=== PATIENT | female | born 1930 | race Caucasian/White ===

== ENCOUNTER 2016-06-08 20:01 | Inpatient (IN) | payer MEDICARE, OTHER ==
--- NOTE | ~2016-06-08 | DS ---
Discharge Summary [place] [id number] [facility] [place]. [address] NAME: CONSTANCE GILL : 30 STATUS : DIS IN PAT#: [id number] AGE: 86 ADM/REG DATE : 06/08/16 MR#: [id number] REPORT SERV DATE: 07/05/16 DICTATED BY: BRET VILLA DATE: 07/04/16 REPORT STATUS : Draft TRANSCRIBED BY: MODCarla DATE: 07/04/16 ADMISSION DATE: 06/08/2016 DISCHARGE DATE: 07/02/2016 DISCHARGE DISPOSITION: [facility]. DISCHARGE DIAGNOSES: 1. Hypoxic respiratory failure. 2. Recurrent aspiration. 3. Aspiration pneumonia. 4. Severe sepsis. 5. Severe Clostridium difficile colitis. 6. Severe malnutrition. 7. History of dementia. 8. History of chronic obstructive pulmonary disease. 9. History of anxiety disorder. 10.History of depression. HISTORY OF PRESENT ILLNESS: For detailed HPI, please make reference to Dr. Peewee Beach's dictation on 06/09/2016. In brief, this is an 86-year-old female, who presented to the hospital from [facility] in [place], [place] with complaints of severe diarrhea and generalized weakness. It is of note, the patient has history of recurrent ESBL urinary tract infection prior to presentation and has had extensive antibiotic treatments in the past. It was noted on presentation that patient's blood pressure was 108/44, saturating 95% on 2 L of oxygen, temperature was 95.8. Abdomen was soft and nontender. Stool study was done, was positive for C diff toxin. The patient's WBC was noted to be 41,200. The patient was admitted to the hospitalist service for further management. HOSPITAL COURSE: The patient had a prolonged hospital stay from 06/08/2016 to the time of discharge. For detailed hospital course, please make reference to interim discharge summary dictated by Dr. Freya Rutherford on 06/29/2016, summary by Dr. Bret Villa on 06/24/2016, and another interim discharge summary by Dr. Freya Rutherford on 06/16/2016. In brief, during this hospital stay, Infectious Disease was consulted, recommended to initiate p.o. vancomycin and IV Flagyl. The patient was also noted to have had a dirty urine. The patient was initially started on meropenem. However, under the guide of Infectious Disease, meropenem was discontinued. The patient was continued on p.o. vancomycin and IV Flagyl for severe C diff colitis. The patient's white blood cell during the course of the admission, trended up and peaked at 84,000. This was a marker at 84,000 which was a marker of poor prognosis in this patient. After extended course of treatment with IV Flagyl and p.o. vancomycin, the patient's white blood cell count trended down from 84,000 back to 41,000 and remained stable for a prolonged period of time. The patient's mental status continued to decline throughout the course of admission. The patient was unable to tolerate p.o. The patient was started on TPN for nutritional support. Hospital stay was complicated by recurrent aspiration due to altered mental status. An extensive discussion was had with the patient's son who is the power of compliance attorney as well as the patient's granddaughter. It was noted that the patient's code status was do not resuscitate. Also, the patient expressed wishes of not to be Discharge [address] [address] NAME: OCNSTANCE GILL : 30 STATUS : DIS IN PAT#: [id number] AGE: 86 ADM/REG DATE : 06/08/16 MR#: [id number] REPORT SERV DATE: 07/05/16 DICTATED BY: BRET VILLA DATE: 07/04/16 REPORT STATUS : Draft TRANSCRIBED BY: LINO DATE: 07/04/16 intubated or connected to any invasive life support machine or procedure. Based on this note, the patient was provided extensive supportive care. The patient's hospital stay was also complicated by aspiration pneumonia. ID recommended to start the patient on IV cefepime. The patient's white blood cell gradually trended down from 48,000 back to 11,000 and remained stable. However, the patient's mental status did not improve. The patient was still unable to tolerate p.o. Due to patient's worsening mental status, the patient was unable to protect her airway. She continued to have recurrent excessive secretion and aspiration. Given the overall poor prognosis in this patient, family expressed a wish for the patient to be made comfort care and transferred to hospice. The patient with the case management director and social secretary provided, the family with multiple options of hospice organization available in the hospital, the patient's family decided to go with [facility]. The patient was discharged from the Medicine Service and admitted under the hospice service. IOO/MODL Bret Villa MD / [id number] CC: MD Bolivar Valadez M.D.
--- NOTE | ~2016-06-08 | CN ---
Consultation Report [place] [id number] [facility] [place]. [address] NAME: LEANNA FELIZ : 30 STATUS : ADM IN [facility]#: [id number] AGE: 86 ADM/REG DATE : 06/08/16 MR#: [id number] REPORT SERV DATE: 06/30/16 DICTATED BY: LORETTA CAROLINA DATE: 06/30/16 REPORT STATUS : Draft TRANSCRIBED BY: MODL DATE: 06/30/16 CONSULT DATE OF CONSULTATION: 06/30/2016 REASON FOR CONSULTATION: Respiratory failure. Ms. Leanna Feliz is an unfortunate 86-year-old female with a significant past medical history of COPD, peripheral neuropathy, essential tremor, hyperlipidemia, hypertension, anxiety, and depression, recent suspected aspiration pneumonia on 05/25/2016, and a urinary tract infection on 05/31/2016, who presented to [facility] with worsening shortness of breath, weakness, lethargy, anorexia, and diarrhea. The patient was found to have C. diff positive and C. diff NAP1 strain, impressive leukemoid reaction with a white blood cell count greater than 80,000. The patient was treated with p.o. vancomycin and Flagyl. However the patient was incompletely able to tolerate the medication because of her aspiration issues. During her hospital course, this has been complicated by multiorgan dysfunction including respiratory failure, increased tachycardia with her heart rate now in the 130s and 140s, encephalopathy, and worsening malnutrition and hypoalbuminemia on TPN. I have been asked to discuss her code status and offer insight into her current condition. I am unable to have a conversation with the patient. I spoke with the patient's family members including her granddaughter. The patient's granddaughter states that she was alert and awake at least 3-to-4 days ago and then suddenly had an acute decompensation and several witnessed episodes of aspiration. She currently has a DNR and DNI status and is not interested in mechanical ventilation. REVIEW OF SYSTEMS: Could not be performed due to the patient's altered mental status. PAST MEDICAL HISTORY: 1. Anxiety. 2. Depression. 3. Dementia. 4. COPD. 5. Gait disorder. 6. Peripheral neuropathy. 7. Essential tremor. 8. Syncope. 9. ESBL E. coli. 10.Essential hypertension. 11.Hyperlipidemia. 12.Recent aspiration pneumonia. Consultation Report [place] [address] [id number] [place]. [address] NAME: LEANNA FELIZ : 30 STATUS : ADM IN [facility]#: [id number] AGE: 86 ADM/REG DATE : 06/08/16 MR#: [id number] REPORT SERV DATE: 06/30/16 DICTATED BY: LORETTA CAROLINA DATE: 06/30/16 REPORT STATUS : Draft TRANSCRIBED BY: LINO DATE: 06/30/16 PAST SURGICAL HISTORY: As above. SOCIAL HISTORY: The patient used to smoke, quit more than 10 years ago. There is no history of alcohol or illicit drug abuse. 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 FAMILY HISTORY: Noncontributory. ALLERGIES: NO KNOWN DRUG ALLERGIES. HOME MEDICATIONS: Reviewed and located in the paper chart. PHYSICAL EXAMINATION: VITAL SIGNS: Afebrile, T-current of 98.2, pulse of 124, down from a peak of 145, Vapotherm at 30 L at 97% with an FiO2 of 100%, blood pressure of 143/61; 5 foot 1 inch; 127 pounds, BMI of 24. GENERAL: Ill-appearing, in obvious respiratory failure and altered mental status. HEENT: Normocephalic and atraumatic. Pupils equal, round, and reactive to light and accommodation. Posterior oropharynx is clear but dry. NECK: No JVD. No LAD. Trachea midline. CARDIOVASCULAR: Tachycardic. No obvious murmurs, rubs, or clicks. LUNGS: Coarse bilateral breath sounds with rhonchi. No wheezes. ABDOMEN: Nontender. Nondistended. Soft. Positive bowel sounds. EXTREMITIES: No clubbing, cyanosis, or edema. SKIN: No new rashes, lesions, or ulcers. PSYCHIATRIC: I am unable to assess due to the patient's altered mental status. NEUROLOGIC: Moving all four extremities. LABORATORY DATA: White count of 11, hemoglobin of 8, hematocrit of 26, and platelet count of 291. Procalcitonin 0.11. Chemistries demonstrate a creatinine of 0.32, pH is 7.44, PaCO2 of 31, and PaO2 of 151. IMAGING: Chest x-ray on 06/30/2016, was reviewed and in addition to her admitting hospital x rays from her admission since her admission, mild interval retraction of the right upper extremity PICC line, developing left basilar consolidation, atelectasis, and right infrahilar atelectasis and diffuse interstitial disease consistent with bilateral aspiration pneumonia plus or minus overlying volume overload. ASSESSMENT AND PLAN: Ms. Leanna Feliz is an unfortunate 86-year-old female, whose birthday is today, with significant past medical history of prior tobacco abuse, who presented with worsening weakness and diarrhea, was found to have a NAP1 severe Clostridium difficile colitis with now multiorgan failure including altered mental status/encephalopathy, hypoxic respiratory failure, now on 100% Vapotherm, increasing heart rate, and persistent diarrhea with suboptimal therapy, given poor p.o. absorption of the patient's vancomycin. The Consultation Report [address] [place]. [address] NAME: LEANNA FELIZ : 30 STATUS : ADM IN PAT#: [id number] AGE: 86 ADM/REG DATE : 06/08/16 MR#: [id number] REPORT SERV DATE: 06/30/16 DICTATED BY: LORETTA CAROLINA DATE: 06/30/16 REPORT STATUS : Draft TRANSCRIBED BY: LINO DATE: 06/30/16 patient is now in obvious respiratory failure and could not protect her airway and could qualify for intubation. I did discuss her code status in great detail. I have reviewed imaging with the family and reviewed all of the patient's chest x-rays. The patient's family reiterated that she does not wish to be intubated or on life support and confirmed DNR DNI status. We did discuss in detail other options including hospice. The patient's family member is coming in from [place]. They will discuss with the family whether or not comfort care measures are appropriate. RECOMMENDATIONS: A summary of my recommendations are as follows: 1. Greater than 60 minutes spent at discussing and counseling the patient's family regarding the clinical prognosis with pulmonary hypoxic respiratory failure and hospice care. Thank you for allowing me to participate in Ms. Feliz' care. JASON/LINO Loretta Carolina M.D. / [id number] CC: MD Bolivar Valadez M.D.
--- NOTE | ~2016-06-08 | CN ---
Consultation Report [facility] [address] [place]. [address] NAME: CONSTANCE GILL : 30 STATUS : ADM IN [facility]#: [id number] AGE: 85 ADM/REG DATE : 06/08/16 MR#: [id number] REPORT SERV DATE: 06/11/16 DICTATED BY: HARSHA KOEHLER DATE: 06/10/16 REPORT STATUS : Draft TRANSCRIBED BY: MODL DATE: 06/10/16 DATE OF CONSULTATION: 06/10/2016 REASON FOR CONSULTATION: C difficile colitis. HISTORY OF PRESENT ILLNESS: This is an 85-year-old female with a past medical history notable for COPD, peripheral neuropathy, essential tremor, hyperlipidemia, hypertension, anxiety, and depression. She also has a history according to the record of recurrent UTIs, including an ESBL E coli in the past. She resides at a local detention. The patient was given a course of clindamycin starting on 05/25/2016 for suspected aspiration pneumonia in the setting of leukocytosis earlier that month of 17,000. I do not see a chest x-ray report. On 05/31/2016, the patient was started on Macrobid for 10 days for concerns about a UTI. However, she was brought to the emergency department on 06/08/2016 here at [facility] because of increasing weakness, lethargy, and anorexia and she also had developed diarrhea. Stool for C difficile was positive for the NAP-1 strain. She had a leukocytosis on admission of 41.2 thousand. Earlier in the day at the detention, it had been 32.6, which also prompted the facility to send her to the emergency department. The patient was placed on oral vancomycin and IV Flagyl along with IV meropenem. She continues to have diarrhea. Her white blood cell count today is up to 49,000 with a 22% bandemia. She says she does have abdominal pain, although it is not severe. Her blood cultures have returned negative. Urine culture is negative. Urinalysis did show moderate leukocyte esterase and 167 white blood cells. She does not have a chronic [place]. PAST MEDICAL HISTORY: As outlined above. In addition, she has had numerous surgeries, including hysterectomy, cholecystectomy, cataract surgery, right hip replacement. ALLERGIES: NONE. PRESENT MEDICATIONS: In addition to the antibiotics mentioned include Tylenol, Norvasc, Caltrate, vitamin D, Prozac, Flonase, subcutaneous heparin, hydrochlorothiazide, Singulair, Ditropan, Inderal, Desyrel, potassium chloride, and MiraLAX. SOCIAL HISTORY: She is , nondrinker. Lives at the detention as mentioned. FAMILY HISTORY: Noncontributory. REVIEW OF SYSTEMS: As outlined above. In addition, she complains of some right arm discomfort, but cannot really be more specific about it for me. Denies any cough or chest pain. PHYSICAL EXAMINATION: VITAL SIGNS: This is a 51 kg female. She has been afebrile since admission. Blood pressure now 125/58, it was as low as 91/36 on admission. Pulse 94. Respiratory rate 16, it was 26 on admission. HEAD AND NECK: The oral cavity is clear. Neck is supple. No adenopathy. Consultation Report [place] [id number] [facility] [place]. [address] NAME: CONSTANCE GILL : 30 STATUS : ADM IN [facility]#: [id number] AGE: 85 ADM/REG DATE : 06/08/16 MR#: [id number] REPORT SERV DATE: 06/11/16 DICTATED BY: HARSHA KOEHLER DATE: 06/10/16 REPORT STATUS : Draft TRANSCRIBED BY: LINO DATE: 06/10/16 LUNGS: Clear to auscultation anteriorly. CARDIAC: Regular rate and rhythm. Normal S1 and S2 without murmur, gallop, or rub. ABDOMEN: Shows hyperactive bowel sounds, mildly distended, soft. Mild diffuse tenderness. EXTREMITIES: The patient has a peripheral IV without phlebitis. No significant edema. SKIN: Without rash. LABORATORY STUDIES: White blood cell count as mentioned. Hemoglobin 11.3, platelets 349, creatinine 0.71, albumin 2.2. Liver function tests normal. Microbiology studies as mentioned. Chest x-ray on admission negative. IMPRESSION: Sepsis secondary to severe Clostridium difficile colitis. I do not think she has an active urinary tract infection at present. The admission urine culture is negative. She was on Macrobid and she does have some pyuria, but I think at this point, the risk of ongoing broad-spectrum antibiotic therapy outweigh any benefit given her Clostridium difficile. PLAN: 1. We will continue oral vancomycin and IV Flagyl for the C difficile. 2. Stop the meropenem. 3. Stop the MiraLAX. HH/MODL Harsha Koehler M.D. / [id number] CC: Albert Shabazz M.D.
--- NOTE | ~2016-06-08 | HP ---
History And Physical [place] [address] [place]. [address] NAME: CONSTANCE FELIZ : 30 STATUS : ADM IN [facility]#: [id number] AGE: 85 ADM/REG DATE : 06/08/16 MR#: [id number] REPORT SERV DATE: 06/09/16 DICTATED BY: PEEWEE MADDEN DATE: 06/08/16 REPORT STATUS : Draft TRANSCRIBED BY: MODL DATE: 06/08/16 DATE OF ADMISSION: 06/08/2016 CHIEF COMPLAINT: Generalized weakness and diarrhea. HISTORY OF PRESENT ILLNESS: This is an 85-year-old female, who is a resident at [facility] in [place], [place], who has a history of recurrent ESBL urinary tract infections, who started feeling sick about a week or so ago. During this time, she had some lower abdominal pain and diarrhea. The [facility] facility tried some medications, but when she did not get any better they decided to send her to the emergency room to be evaluated. In the emergency room, initial workup revealed, she did have a urinary tract infection and also tested positive for Clostridium difficile colitis. She had sepsis and Hospitalist Service is asked to admit her for further evaluation and treatment. At the time of my evaluation, she denied any chest pain, palpitations, or orthopnea. She had no cough, hemoptysis, night sweats, or weight loss. She has not had any recent falls or loss of consciousness. She has not had any fevers or chills according to her, but did have some nausea. She denied any hematemesis, hematochezia, or hematuria. No other history of recent travel or exposures other than those mentioned above. 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 She also has history of ESBL E. coli in the past along with essential hypertension and hypercholesterolemia. SOCIAL HISTORY: She used to smoke, but has not smoked in more than 10 years. She denied alcohol use or recreational drug use. 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 FAMILY HISTORY: Noncontributory. MEDICATIONS: Her medications at home were reviewed by me in the chart today and reordered by me. REVIEW OF SYSTEMS: As in history of present illness. All other systems were reviewed in detail and are quite unremarkable. PHYSICAL EXAMINATION: GENERAL: This is a pleasant 85-year-old, not in any acute distress. HEENT: Her head is atraumatic and normocephalic. She is alert, awake, oriented to time, place, and person. Her pupils are equal, reacting to light and accommodating. External ocular muscles are intact. Membranes are moist and pink. Sclerae are nonicteric. NECK: Supple with no jugular venous distention, lymphadenopathy, or thyromegaly. History And Physical [address] [address] NAME: CONSTANCE FELIZ : 30 STATUS : ADM IN [facility]#: [id number] AGE: 85 ADM/REG DATE : 06/08/16 MR#: [id number] REPORT SERV DATE: 06/09/16 DICTATED BY: PEEWEE MADDEN DATE: 06/08/16 REPORT STATUS : Draft TRANSCRIBED BY: LINO DATE: 06/08/16 LUNGS: Clear to auscultation with no wheezes, rubs, or crackles. HEART: Heart sounds were regular with no murmurs, rubs, or gallops. ABDOMEN: Soft and nontender. Bowel sounds are present. EXTREMITIES: No cyanosis, clubbing, or edema. NEUROLOGIC: Grossly intact. No focal sensory or motor deficits. Higher functions appeared intact. Gait was not examined. VITAL SIGNS: Her vital signs today showed a temperature of 98.2, pulse 75, respirations 26 a minute, blood pressure was 108/44, and oxygen saturations were 95%, breathing 2 L of oxygen via nasal cannula. LABORATORY DATA: Reviewed on the [employer] system showed a sodium of 139, potassium 3.5, chloride 105, CO2 of 24, BUN was 30 with a creatinine of 0.75, and blood glucose was 111. Her calcium was 8. Magnesium was not checked. CBC showed a white blood cell count of 41,200. Hemoglobin, hematocrit, and platelet count were within normal limits. Her prothrombin time was 14.6 with an INR of 1.2. Urinalysis showed moderate leukocyte esterase, nitrite was negative. There were 167 wbc's and rare bacteria. She also tested positive for Clostridium difficile in her stool. Films of the chest x-ray were reviewed by me on the PACS today and interpreted by me. Per my interpretation, there is normal bony architecture with no cardiomegaly. Lung frances were emphysematous, but without any lobar consolidations or effusions. IMPRESSION: 1. Generalized weakness. 2. Urinary tract infection. 3. Sepsis. 4. Clostridium difficile colitis and diarrhea. 5. Essential hypertension. 6. Hypercholesterolemia. 7. Dementia. 8. Anxiety and depression. 9. Chronic obstructive pulmonary disease. 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 11.Essential tremor. 12.Peripheral neuropathy. PLAN: We will admit Mrs. Feliz to the Hospitalist Service with telemetry for close monitoring. After cultures are drawn we will start her on empiric IV antibiotics. We will start her on meropenem for ESBL E. coli and also intravenous Flagyl. We will go ahead and consult Infectious Disease Service to evaluate her and offer recommendation as well. We will start her on IV fluids for volume resuscitation. Follow serial chemistry, electrolytes, and CBC in the morning. We will also check her lactate and procalcitonin levels. Bronchodilators and oxygen will be provided at this time. We will continue all History And Physical [address] [address] NAME: CONSTANCE FELIZ : 30 STATUS : ADM IN [facility]#: [id number] AGE: 85 ADM/REG DATE : 06/08/16 MR#: [id number] REPORT SERV DATE: 06/09/16 DICTATED BY: PEEWEE MADDEN DATE: 06/08/16 REPORT STATUS : Draft TRANSCRIBED BY: LINO DATE: 06/08/16 other medications and treatments. She will be on unfractionated heparin for DVT prophylaxis while here. I have discussed the above plans with the patient. Her questions were answered. She is agreeable to the above recommendations. Hospitalist Service will be following her during her stay here. /LINO Peewee Madden M.D. / [id number] CC: Albert Patel M.D.
--- NOTE | ~2016-06-08 | IDS ---
Interim Discharge Summary [facility] [address] [place]. [address] NAME: CONSTANCE GILL : 30 STATUS : ADM IN [facility]#: [id number] AGE: 85 ADM/REG DATE : 06/08/16 MR#: [id number] REPORT SERV DATE: 06/24/16 DICTATED BY: BRET VILLA DATE: 06/22/16 REPORT STATUS : Draft TRANSCRIBED BY: MODCarla DATE: 06/22/16 ADMISSION DATE: 06/08/2016 DISCHARGE DATE: DISCHARGE DATE: Pending. CURRENT DIAGNOSES: 1. Severe sepsis secondary to acute severe Clostridium difficile with leukemoid reaction. The patient is currently receiving IV Flagyl and p.o. vancomycin. White cell count has currently trended down from 84,000 to 30,000. 2. Severe malnutrition secondary to malabsorption due to Clostridium difficile colitis. The patient is currently on TPN and tolerating it without any complication. 3. Leukemoid reaction. The patient's creatinine was as high as 84,000; currently trended down to 54,000 as of today. The patient's white blood cell is now 30,000. The patient is currently improving. 4. Hyponatremia, resolved. 5. Possible urinary tract infection. The patient has a history of Escherichia coli. The patient's urinalysis was positive for leukocyte esterase; however, her urine culture was negative. ID recommended not to continue any antibiotic treatment for possible urinary tract infection. 6. Also had heme-positive stool. The patient was noted to have a heme-positive stool and some streaks of blood mixed with stool and mucus. There was initial concern for possible GI bleed. The patient was started on IV Protonix during the course of this admission. The patient was switched from the IV Protonix drip to IV PPI. The patient's hemoglobin has remained stable. Given the patient's poor prognosis and overall debilitating condition from C. diff colitis. Gastroenterology was not consulted. The patient's H and H remained stable. 7. Oral candidiasis, on oral nystatin t.i.d. p.r.n. 8. Normocytic anemia. Hemoglobin stable at 10.8. 9. Pedal edema likely due to dependent position. The patient is currently off IV fluid, at this time and is on TPN. Other chronic conditions being monitored include: 1. Dementia. 2. DNR status. 3. COPD. 4. Depression. 5. Anxiety disorder. 6. Peripheral neuropathy. SOCIAL ISSUES: The patient's [id number] remained the only close relative who has been visiting the patient throughout the course of this admission. The patient's son currently lives [facility], in [facility]. The patient's son has a power of state attorney, if needed can be contacted over the phone. The patient's phone number can be obtained from the brother-in law who is usually at the bedside of this patient during this hospitalization. Interim Discharge Summary [address] [address] NAME: CONSTANCE GILL : 30 STATUS : ADM IN [facility]#: [id number] AGE: 85 ADM/REG DATE : 06/08/16 MR#: [id number] REPORT SERV DATE: 06/24/16 DICTATED BY: BRET VILLA DATE: 06/22/16 REPORT STATUS : Draft TRANSCRIBED BY: LINO DATE: 06/22/16 CURRENT CONDITION: Critical. IOO/MODL Bret Villa MD / [id number] CC: MD Jeane Valadez M.D.
--- NOTE | ~2016-06-08 | IDS ---
Interim Discharge Summary [facility] [address] [place]. [address] NAME: CONSTANCE GILL : 30 STATUS : ADM IN [facility]#: [id number] AGE: 85 ADM/REG DATE : 06/08/16 MR#: [id number] REPORT SERV DATE: 06/16/16 DICTATED BY: HILL MENDOSA DATE: 06/15/16 REPORT STATUS : Draft TRANSCRIBED BY: MODCarla DATE: 06/15/16 ADMISSION DATE: 06/08/2016 DISCHARGE DATE: DIAGNOSES: Diagnoses so far include the followin. Sepsis from acute and severe Clostridium difficile colitis - this is resolving slowly with IV Flagyl and p.o. vancomycin. The patient's diarrhea has stopped as of now. However, patient's nausea and extremely poor appetite persist. 2. Severe malnutrition from Clostridium difficile colitis - the patient is on TPN temporarily right now. Once her appetite picks up, the TPN can be discontinued. 3. Severe leukocytosis that was as high as 84,000 at one point. Now, it has started coming down and today her WBC count is 54,000. ID has been following and surprisingly the leukocytosis has been extremely acute and severe only from the clostridium difficile colitis as multiple multiple blood cultures have come back negative for any bacterial growth in this patient. ID at this time does not seem to think that this is fungal in origin. 4. The patient, however, in the beginning upon admission had a urinary tract infection with extended-spectrum beta-lactamase Escherichia coli for which she had received treatment with IV meropenem. However, once her urine culture came back negative after being treated for a few days with IV Merrem, Infectious Disease promptly discontinued IV meropenem which I agree. Now, the patient continues to be on IV Flagyl and p.o. vancomycin for the treatment of the C diff itself. As mentioned, the patient's diarrhea has resolved, but the patient continues to have severe leukocytosis and also continues to be on TPN. However, her leukocytosis is also on the downside and WBC count has actually improved today. 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 The patient actually is and is a resident of [facility]. Her next of kin is her significant other who promptly sees her every day and also helps make decisions on her healthcare right now. The patient does not appear to be septic at all surprisingly even though she appears really weak at this time. This patient will be followed by my colleague on 06/16/2016. Consultants on this case include Infectious Disease specialist and she is being followed by Dr. Justyn Koehler currently. JASIEL/LINO Hill Mendosa M.D. / [id number] CC: Hill Mendosa M.D. Interim Discharge Summary [address] [address] NAME: CONSTANCE GILL : 30 STATUS : ADM IN [facility]#: [id number] AGE: 85 ADM/REG DATE : 06/08/16 MR#: [id number] REPORT SERV DATE: 06/16/16 DICTATED BY: HILL MENDOSA DATE: 06/15/16 REPORT STATUS : Draft TRANSCRIBED BY: LINO DATE: 06/15/16 Jeane Jaramillo M.D.
--- NOTE | ~2016-06-08 | IDS ---
Interim Discharge Summary [facility] [address] [place]. [address] NAME: CONSTANCE GILL : 30 STATUS : ADM IN [facility]#: [id number] AGE: 85 ADM/REG DATE : 06/08/16 MR#: [id number] REPORT SERV DATE: 06/29/16 DICTATED BY: HILL MENDOSA DATE: 06/29/16 REPORT STATUS : Draft TRANSCRIBED BY: MODCarla DATE: 06/29/16 ADMISSION DATE: 06/08/2016 DISCHARGE DATE: Date that I took over care of this patient again is 06/23/2016, and date of transfer to my colleague will be 06/30/2016. DIAGNOSES: So far on this patient is: 1. Aspiration pneumonia - this is something new that the patient was diagnosed with during the time that I took care of this patient during the last week. She has been started on IV cefepime, and today is day #5, and she seems to have improved markedly. Infectious Disease has been following her. 2. Leukocytosis, which was persistent in this patient, has finally resolved and her WBC count is back to almost normal now surprisingly after the cefepime was started. 3. Acute severe Clostridium difficile colitis. The patient is on IV Flagyl and p.o. vancomycin for almost 17 to 18 days now. However, for the last several days, we had not been able to give her p.o. vancomycin, but now that she is a little more alert, she has been taking vancomycin p.o. also. Hence, this C. difficile colitis also seems to be slowly resolving. The patient does have hyperactive bowel sounds and continues to have two to three mucousy bowel movements daily. 4. Severe malnutrition and hypoalbuminemia. The patient is on TPN; however, the patient is on a very low rate of TPN because we do not want to fluid overload her at this time. She has been doing fairly well on this. 5. Significant improvement in leukocytosis after the patient was started on IV cefepime for the aspiration pneumonia per se. Her code status continues to be DNR. Family is not quite ready for hospice yet in this patient. I have had several discussions with the several family members including her son, who visited her from [place]. The family is very supportive and her code status; however, continues to be a do not resuscitate and comfort measures only. So, as of now, she continues to be on IV cefepime, IV Flagyl, and p.o. vancomycin, and IDs continuing to follow her. This patient will be taken over and she will be cared for by my colleague as of 06/30/2016. JASIEL/LINO Hill Mendosa M.D. / [id number] CC: Albert Shabazz M.D.
[~2016-06-08 20:01] MED LIST: ACET500CAP PO; ACTONEL35 MG PO; ADVAIR250 INH; ADVIL PO; ASAB PO; DITROXL5 PO; DRAMAMINE25 MG PO; ICAPS AREDS SO1 EACH PO; ICAPS MV PO; KLONO5 PO; KLONOPIN WAF0.25 MG PO; LUNESTA2 M1 PO; MCZ125 PO; MCZ25 PO; MIRALAXPKT PO; NASONEX NAS; NORCO1 TA1 PO; OXYTROL 3.3.9 MG/24 TOP; PCET PO; PREM625 PO; PRIM50B PO; PRIMIDONE PO; PROVHFA INH; PROZAC PO; PROZAC40 MG PO; SINGULAIR1 PO; T PO; TRAZ50 PO; TYLENOL 8 HR650 MG PO; ULTRACET PO; ULTRAM50 PO; VITAMIN D31000 UNIT PO; X5 PO; ZOCOR20 PO; [UNRECOGNIZED DRUG - CODE] PO
[2016-06-08 21:09] LABS: ASCORBIC ACID (UR NOT ORDER) NEG (NEG); BILIRUBIN, URINE NEGATIVE (NEG); ER URINALYSIS TAT 0 Hrs 27 Mins; KETONE, URINE 20 MG/DL (NEG); LEUKOCYTE ESTERASE(NOT OR MOD (NEG); NITRITE (URINE) NEG (NEG); WBC (NOT ORDERED) (RFLEX) 167 (0-5)
[2016-06-08 21:11] LABS: BASOPHILS 0.2 %; EOSINOPHILS 0.1 %; EOSINOPHILS ABSOLUTE 0.04 10/3/uL (0.0-0.53); HEMATOCRIT 38.5 % (36.0-48.0); HEMOGLOBIN 12.7 g/dL (12.0-16.0); IMMATURE GRANULOCYTES 2.3 %; IMMATURE GRANULOCYTES ABSOLUTE 0.95 10/3/uL (0.0-0.11); LYMPHOCYTES 6.5 %; LYMPHOCYTES ABSOLUTE 2.69 10/3/uL (0.67-4.30); MEAN CORPUSCULAR HEMOGLOB 30.1 pg (26.0-34.0); MEAN CORPUSCULAR VOLUME 91.2 fL (80-100); MEAN PLATELET VOLUME 11.4 fL (9.2-13.0); MONOCYTES 5.7 %; MONOCYTES ABSOLUTE 2.35 10/3/uL (0.21-1.20); NEUTROPHILS 85.2 %; NEUTROPHILS ABSOLUTE 35.12 10/3/uL (2.02-8.40); RED CELL COUNT 4.22 10/6/uL (4.0-5.6)
[2016-06-08] MEDS ORDERED: MACROBID PO (21:11)
[2016-06-08 21:12] LABS: ER CBC TAT 0 Hrs 10 Mins; PLATELET COUNT 340 10/3/uL (150-400); WHITE BLOOD CELLS 41.2 10/3/uL (4.5-10.5)
[2016-06-08] MEDS ORDERED: IMOD PO (21:12)
[2016-06-08] MEDS ORDERED: SINGULAIR1 PO (21:12)
[2016-06-08 21:13] LABS: BASOPHILS ABSOLUTE 0.07 10/3/uL (0.0-0.16); INTERNATIONAL NORMAL RATI 1.2 UNITS (-); MANUAL DIFF NO %; PARTIAL THROMBO TIME 31.5 SEC (22.5-37.2); PROTIME (NOT ORD) 14.6 SEC (12.0-14.5)
[2016-06-08] MEDS ORDERED: I40 PO (21:13)
[2016-06-08] MEDS ORDERED: MIRALAX POWDER1 PKT PO (21:14)
[2016-06-08] MEDS ORDERED: NORV25 PO (21:14)
[2016-06-08] MEDS ORDERED: ADVAIR250 INH (21:14)
[2016-06-08] MEDS ORDERED: DITROXL5 PO (21:14)
[2016-06-08] MEDS ORDERED: CRANBERRY405 MG PO (21:15)
[2016-06-08] MEDS ORDERED: HYDROCHLOROT25 MG PO (21:15)
[2016-06-08] MEDS ORDERED: KDUR20 PO (21:15)
[2016-06-08] MEDS ORDERED: FLONASE NAS (21:15)
[2016-06-08] MEDS ORDERED: VITAMIN D31000 UNIT PO (21:16)
[2016-06-08] MEDS ORDERED: T PO ×2 (21:16→21:17)
[2016-06-08] MEDS ORDERED: CALTRAT600 PO (21:16)
[2016-06-08] MEDS ORDERED: PROZAC40 MG PO (21:16)
[2016-06-08] MEDS ORDERED: TRAZ50 PO (21:17)
[2016-06-08] MEDS ORDERED: VENTOLIN HFA INH (21:18)
[2016-06-08 21:22] LABS: A/G RATIO 0.6 (0.7-1.9); ALBUMIN 2.2 G/DL (3.5-5.0); ALKALINE PHOSPHATASE 106 U/L (45-117); BUN (BLOOD UREA NITROGEN) 30 MG/DL (6-23); CHLORIDE, SERUM 105 MMOL/L (96-112); CO2 (CARBON DIOXIDE) 24 MMOL/L (24-34); CREATININE 0.75 MG/DL (0.55-1.02); GFR AFRICAN AMERICAN 84 ML/MIN (>=60); GFR NON AFRICAN AMERICAN 73 ML/MIN (>=60); GLOBULIN 3.9 G/DL (2.5-4.1); GLUCOSE, SERUM 111 MG/DL (60-99); POTASSIUM, SERUM 3.5 MMOL/L (3.5-5.3); SGOT(AST) 11 U/L (5-40); SGPT(ALT) 15 U/L (5-65); SODIUM, SERUM 139 MMOL/L (135-148); TOTAL BILIRUBIN 0.6 MG/DL (0-1.2); TOTAL PROTEIN 6.1 G/DL (6.0-8.5)
[2016-06-08 21:23] LABS: LACTATE 1.5 MMOL/L (0.3-2.4)
[2016-06-08 21:25] LABS: BAND NEUTROPHILS 31 %; ER DIFF TAT 0 Hrs 23 Mins; IMMATURE GRANS ABSOLUTE (CALC) 0.41 10/3/uL (0.0-0.11); LYMPHOCYTES 3 %; LYMPHOCYTES ABSOLUTE (CALC) 1.24 10/3/uL (0.67-4.30); METAMYELOCYTES 1 %; MONOCYTES 5 %; MONOCYTES ABSOLUTE (CALC) 2.06 10/3/uL (0.21-1.20); NEUTROPHILS ABSOLUTE (CALC) 37.49 10/3/uL (2.02-8.40); SEGMENTED NEUTROPHIL (0) 60 %; TOTAL NUCLEATED CELLS 100
[2016-06-08 21:26] LABS: TOXIC GRANULATION 1+
[2016-06-08 21:34] LABS: PLATELET ESTIMATE ADQ (ADEQUATE); RBC MORPHOLOGY NORM (NORMAL)
[2016-06-08 22:37] LABS: PROCALCITONIN 0.48 ng/mL (<0.5)
[2016-06-09 02:26] LABS: HEMATOCRIT 35.5 % (36.0-48.0); HEMOGLOBIN 11.9 g/dL (12.0-16.0); MEAN CORPUS HGB CONC 33.5 g/dL (32.0-36.0); MEAN CORPUSCULAR HEMOGLOB 30.9 pg (26.0-34.0); MEAN CORPUSCULAR VOLUME 92.2 fL (80-100); MEAN PLATELET VOLUME 11.2 fL (9.2-13.0); PLATELET COUNT 295 10/3/uL (150-400); RBC DISTRIBUTION WIDTH 14.9 % (12.0-16.0); RED CELL COUNT 3.85 10/6/uL (4.0-5.6)
[2016-06-09 02:27] LABS: MANUAL DIFF YES %; WHITE BLOOD CELLS 34.1 10/3/uL (4.5-10.5)
[2016-06-09 02:40] LABS: BUN (BLOOD UREA NITROGEN) 28 MG/DL (6-23); CALCIUM, SERUM 7.6 MG/DL (8.5-10.4); CHLORIDE, SERUM 109 MMOL/L (96-112); CO2 (CARBON DIOXIDE) 25 MMOL/L (24-34); CREATININE 0.79 MG/DL (0.55-1.02); GFR AFRICAN AMERICAN 79 ML/MIN (>=60); GFR NON AFRICAN AMERICAN 68 ML/MIN (>=60); GLUCOSE, SERUM 108 MG/DL (60-99); LACTATE 1.6 MMOL/L (0.3-2.4); PHOSPHORUS, SERUM 1.7 MG/DL (2.5-4.5); POTASSIUM, SERUM 3.3 MMOL/L (3.5-5.3); SODIUM, SERUM 142 MMOL/L (135-148)
[2016-06-09 02:50] LABS: BAND NEUTROPHILS 16 %; LYMPHOCYTES 8 %; LYMPHOCYTES ABSOLUTE (CALC) 2.73 10/3/uL (0.67-4.30); MONOCYTES 2 %; MONOCYTES ABSOLUTE (CALC) 0.68 10/3/uL (0.21-1.20); NEUTROPHILS ABSOLUTE (CALC) 30.69 10/3/uL (2.02-8.40); PLATELET ESTIMATE ADQ (ADEQUATE); RBC MORPHOLOGY NORM (NORMAL); SEGMENTED NEUTROPHIL (0) 74 %; TOTAL NUCLEATED CELLS 100
[2016-06-09 14:45] LABS: PHOSPHORUS, SERUM 1.7 MG/DL (2.5-4.5)
[2016-06-09 14:46] LABS: POTASSIUM, SERUM 4.2 MMOL/L (3.5-5.3)
[2016-06-10 04:59] LABS: HEMATOCRIT 34.5 % (36.0-48.0); HEMOGLOBIN 11.3 g/dL (12.0-16.0); MEAN CORPUS HGB CONC 32.8 g/dL (32.0-36.0); MEAN CORPUSCULAR HEMOGLOB 30.1 pg (26.0-34.0); MEAN CORPUSCULAR VOLUME 91.8 fL (80-100); MEAN PLATELET VOLUME 11.3 fL (9.2-13.0); PLATELET COUNT 349 10/3/uL (150-400); RBC DISTRIBUTION WIDTH 15.7 % (12.0-16.0); RED CELL COUNT 3.76 10/6/uL (4.0-5.6)
[2016-06-10 05:01] LABS: CALCIUM, SERUM 7.2 MG/DL (8.5-10.4); CHLORIDE, SERUM 113 MMOL/L (96-112); CO2 (CARBON DIOXIDE) 23 MMOL/L (24-34); CREATININE 0.71 MG/DL (0.55-1.02); GFR AFRICAN AMERICAN 90 ML/MIN (>=60); GFR NON AFRICAN AMERICAN 78 ML/MIN (>=60); GLUCOSE, SERUM 98 MG/DL (60-99); PHOSPHORUS, SERUM 2.1 MG/DL (2.5-4.5); POTASSIUM, SERUM 3.9 MMOL/L (3.5-5.3); SODIUM, SERUM 144 MMOL/L (135-148); WHITE BLOOD CELLS 49.3 10/3/uL (4.5-10.5)
[2016-06-10 05:02] LABS: BUN (BLOOD UREA NITROGEN) 21 MG/DL (6-23); MANUAL DIFF YES %
[2016-06-10 05:43] LABS: BAND NEUTROPHILS 22 %; IMMATURE GRANS ABSOLUTE (CALC) 1.97 10/3/uL (0.0-0.11); LYMPHOCYTES 6 %; LYMPHOCYTES ABSOLUTE (CALC) 2.96 10/3/uL (0.67-4.30); METAMYELOCYTES 1 %; MONOCYTES 7 %; MONOCYTES ABSOLUTE (CALC) 3.45 10/3/uL (0.21-1.20); MYELOCYTES 3 %; NEUTROPHILS ABSOLUTE (CALC) 40.92 10/3/uL (2.02-8.40); PLATELET ESTIMATE ADQ (ADEQUATE); SEGMENTED NEUTROPHIL (0) 61 %; TOTAL NUCLEATED CELLS 100
[2016-06-10 05:44] LABS: RBC MORPHOLOGY NORM (NORMAL)
[2016-06-11 06:44] LABS: HEMOGLOBIN 12.6 g/dL (12.0-16.0); MEAN CORPUSCULAR HEMOGLOB 30.4 pg (26.0-34.0); MEAN PLATELET VOLUME 11.6 fL (9.2-13.0); NUCLEATED RED BLOOD CELLS 0.2 /100WBC (0-0); PLATELET COUNT 394 10/3/uL (150-400); RBC DISTRIBUTION WIDTH 15.7 % (12.0-16.0); RED CELL COUNT 4.15 10/6/uL (4.0-5.6)
[2016-06-11 06:45] LABS: HEMATOCRIT 38.2 % (36.0-48.0); WHITE BLOOD CELLS 78.5 10/3/uL (4.5-10.5)
[2016-06-11 06:46] LABS: MANUAL DIFF YES %
[2016-06-11 06:55] LABS: BUN (BLOOD UREA NITROGEN) 21 MG/DL (6-23); CALCIUM, SERUM 7.9 MG/DL (8.5-10.4); CHLORIDE, SERUM 113 MMOL/L (96-112); CO2 (CARBON DIOXIDE) 20 MMOL/L (24-34); CREATININE 0.57 MG/DL (0.55-1.02); GFR AFRICAN AMERICAN 98 ML/MIN (>=60); GFR NON AFRICAN AMERICAN 85 ML/MIN (>=60); GLUCOSE, SERUM 102 MG/DL (60-99); SODIUM, SERUM 145 MMOL/L (135-148)
[2016-06-11 07:53] LABS: BAND NEUTROPHILS 35 %; IMMATURE GRANS ABSOLUTE (CALC) 7.85 10/3/uL (0.0-0.11); METAMYELOCYTES 6 %; MONOCYTES 3 %; MONOCYTES ABSOLUTE (CALC) 2.36 10/3/uL (0.21-1.20); MYELOCYTES 4 %; PLATELET ESTIMATE ADQ (ADEQUATE); RBC MORPHOLOGY NORM (NORMAL); SEGMENTED NEUTROPHIL (0) 52 %; TOTAL NUCLEATED CELLS 100
[2016-06-12 07:12] LABS: PREALBUMIN 6.1 MG/DL (17.0-43.0)
[2016-06-12 07:13] LABS: A/G RATIO 0.5 (0.7-1.9); ALBUMIN 1.5 G/DL (3.5-5.0); ALKALINE PHOSPHATASE 108 U/L (45-117); BUN (BLOOD UREA NITROGEN) 24 MG/DL (6-23); CALCIUM, SERUM 7.3 MG/DL (8.5-10.4); CHLORIDE, SERUM 109 MMOL/L (96-112); CO2 (CARBON DIOXIDE) 23 MMOL/L (24-34); CREATININE 0.68 MG/DL (0.55-1.02); GFR AFRICAN AMERICAN 92 ML/MIN (>=60); GFR NON AFRICAN AMERICAN 80 ML/MIN (>=60); GLOBULIN 2.8 G/DL (2.5-4.1); GLUCOSE, SERUM 104 MG/DL (60-99); PHOSPHORUS, SERUM 1.7 MG/DL (2.5-4.5); POTASSIUM, SERUM 3.4 MMOL/L (3.5-5.3); SGOT(AST) 25 U/L (5-40); SGPT(ALT) 11 U/L (5-65); SODIUM, SERUM 143 MMOL/L (135-148); TOTAL BILIRUBIN 0.8 MG/DL (0-1.2); TOTAL PROTEIN 4.3 G/DL (6.0-8.5); TRIGLYCERIDE 257 MG/DL (< 150)
[2016-06-12 07:14] LABS: HEMATOCRIT 39.4 % (36.0-48.0); HEMOGLOBIN 13.3 g/dL (12.0-16.0); MANUAL DIFF YES %; MEAN CORPUS HGB CONC 33.8 g/dL (32.0-36.0); MEAN CORPUSCULAR HEMOGLOB 30.9 pg (26.0-34.0); MEAN CORPUSCULAR VOLUME 91.6 fL (80-100); MEAN PLATELET VOLUME 11.4 fL (9.2-13.0); NUCLEATED RED BLOOD CELLS 0.2 /100WBC (0-0); PLATELET COUNT 371 10/3/uL (150-400); RBC DISTRIBUTION WIDTH 15.8 % (12.0-16.0); WHITE BLOOD CELLS 87.7 10/3/uL (4.5-10.5)
[2016-06-12 07:34] LABS: BAND NEUTROPHILS 29 %; IMMATURE GRANS ABSOLUTE (CALC) 8.77 10/3/uL (0.0-0.11); LYMPHOCYTES 2 %; LYMPHOCYTES ABSOLUTE (CALC) 1.75 10/3/uL (0.67-4.30); METAMYELOCYTES 7 %; MONOCYTES 2 %; MONOCYTES ABSOLUTE (CALC) 1.75 10/3/uL (0.21-1.20); MYELOCYTES 3 %; NEUTROPHILS ABSOLUTE (CALC) 75.42 10/3/uL (2.02-8.40); PLATELET ESTIMATE ADQ (ADEQUATE); RBC MORPHOLOGY NORM (NORMAL); SEGMENTED NEUTROPHIL (0) 57 %; TOTAL NUCLEATED CELLS 100
[2016-06-12 15:22] LABS: A/G RATIO 0.6 (0.7-1.9); ALBUMIN 1.6 G/DL (3.5-5.0); BUN (BLOOD UREA NITROGEN) 24 MG/DL (6-23); CALCIUM, SERUM 7.4 MG/DL (8.5-10.4); CHLORIDE, SERUM 110 MMOL/L (96-112); CO2 (CARBON DIOXIDE) 21 MMOL/L (24-34); CREATININE 0.63 MG/DL (0.55-1.02); GFR AFRICAN AMERICAN 95 ML/MIN (>=60); GFR NON AFRICAN AMERICAN 82 ML/MIN (>=60); GLOBULIN 2.6 G/DL (2.5-4.1); GLUCOSE, SERUM 112 MG/DL (60-99); PREALBUMIN 7.1 MG/DL (17.0-43.0); SGPT(ALT) 10 U/L (5-65); SODIUM, SERUM 146 MMOL/L (135-148); TOTAL PROTEIN 4.2 G/DL (6.0-8.5); TRIGLYCERIDE 265 MG/DL (< 150)
[2016-06-12 15:23] LABS: ALKALINE PHOSPHATASE 131 U/L (45-117); PHOSPHORUS, SERUM 3.6 MG/DL (2.5-4.5); POTASSIUM, SERUM 4.1 MMOL/L (3.5-5.3); TOTAL BILIRUBIN 0.3 MG/DL (0-1.2)
[2016-06-12 15:24] LABS: SGOT(AST) 35 U/L (5-40)
[2016-06-13 07:09] LABS: HEMATOCRIT 38.6 % (36.0-48.0); HEMOGLOBIN 12.9 g/dL (12.0-16.0); MEAN CORPUS HGB CONC 33.4 g/dL (32.0-36.0); MEAN CORPUSCULAR HEMOGLOB 30.6 pg (26.0-34.0); MEAN CORPUSCULAR VOLUME 91.7 fL (80-100); NUCLEATED RED BLOOD CELLS 0.1 /100WBC (0-0); PLATELET COUNT 333 10/3/uL (150-400); RBC DISTRIBUTION WIDTH 15.8 % (12.0-16.0); RED CELL COUNT 4.21 10/6/uL (4.0-5.6)
[2016-06-13 07:16] LABS: MANUAL DIFF YES %; WHITE BLOOD CELLS 84.1 10/3/uL (4.5-10.5)
[2016-06-13 07:22] LABS: CALCIUM, SERUM 7.3 MG/DL (8.5-10.4); CHLORIDE, SERUM 111 MMOL/L (96-112); CO2 (CARBON DIOXIDE) 22 MMOL/L (24-34); GFR AFRICAN AMERICAN 92 ML/MIN (>=60); GFR NON AFRICAN AMERICAN 79 ML/MIN (>=60); POTASSIUM, SERUM 3.5 MMOL/L (3.5-5.3); SODIUM, SERUM 145 MMOL/L (135-148)
[2016-06-13 07:25] LABS: BUN (BLOOD UREA NITROGEN) 32 MG/DL (6-23); GLUCOSE, SERUM 167 MG/DL (60-99)
[2016-06-13 08:40] LABS: BAND NEUTROPHILS 26 %; IMMATURE GRANS ABSOLUTE (CALC) 10.93 10/3/uL (0.0-0.11); LYMPHOCYTES 2 %; LYMPHOCYTES ABSOLUTE (CALC) 1.68 10/3/uL (0.67-4.30); METAMYELOCYTES 8 %; MONOCYTES 2 %; MONOCYTES ABSOLUTE (CALC) 1.68 10/3/uL (0.21-1.20); MYELOCYTES 5 %; PLATELET ESTIMATE ADQ (ADEQUATE); RBC MORPHOLOGY NORM (NORMAL); SEGMENTED NEUTROPHIL (0) 57 %; SMUDGE CELLS FEW; TOTAL NUCLEATED CELLS 100
[2016-06-14 07:30] LABS: CALCIUM, SERUM 7.7 MG/DL (8.5-10.4); CHLORIDE, SERUM 114 MMOL/L (96-112); CO2 (CARBON DIOXIDE) 24 MMOL/L (24-34); CREATININE 0.57 MG/DL (0.55-1.02); GFR AFRICAN AMERICAN 98 ML/MIN (>=60); GFR NON AFRICAN AMERICAN 85 ML/MIN (>=60); GLUCOSE, SERUM 139 MG/DL (60-99); POTASSIUM, SERUM 3.4 MMOL/L (3.5-5.3); SODIUM, SERUM 148 MMOL/L (135-148)
[2016-06-14 07:33] LABS: BUN (BLOOD UREA NITROGEN) 38 MG/DL (6-23); PHOSPHORUS, SERUM 2.7 MG/DL (2.5-4.5)
[2016-06-14 07:51] LABS: HEMATOCRIT 39.8 % (36.0-48.0); HEMOGLOBIN 13.2 g/dL (12.0-16.0); MEAN CORPUS HGB CONC 33.2 g/dL (32.0-36.0); MEAN CORPUSCULAR HEMOGLOB 30.3 pg (26.0-34.0); MEAN CORPUSCULAR VOLUME 91.3 fL (80-100); MEAN PLATELET VOLUME 11.4 fL (9.2-13.0); NUCLEATED RED BLOOD CELLS 0.5 /100WBC (0-0); PLATELET COUNT 263 10/3/uL (150-400); RBC DISTRIBUTION WIDTH 15.9 % (12.0-16.0); RED CELL COUNT 4.36 10/6/uL (4.0-5.6)
[2016-06-14 07:52] LABS: MANUAL DIFF YES %; WHITE BLOOD CELLS 72.3 10/3/uL (4.5-10.5)
[2016-06-14 08:12] LABS: BAND NEUTROPHILS 24 %; IMMATURE GRANS ABSOLUTE (CALC) 6.51 10/3/uL (0.0-0.11); LYMPHOCYTES 2 %; LYMPHOCYTES ABSOLUTE (CALC) 1.45 10/3/uL (0.67-4.30); METAMYELOCYTES 7 %; MONOCYTES 4 %; MONOCYTES ABSOLUTE (CALC) 2.89 10/3/uL (0.21-1.20); MYELOCYTES 2 %; NEUTROPHILS ABSOLUTE (CALC) 61.46 10/3/uL (2.02-8.40); PLATELET ESTIMATE ADQ (ADEQUATE); RBC MORPHOLOGY NORM (NORMAL); SCHISTOCYTES OCC (0-2/OIF); SEGMENTED NEUTROPHIL (0) 61 %; TOTAL NUCLEATED CELLS 100
[2016-06-15 05:52] LABS: BUN (BLOOD UREA NITROGEN) 38 MG/DL (6-23); CHLORIDE, SERUM 118 MMOL/L (96-112); CO2 (CARBON DIOXIDE) 23 MMOL/L (24-34); CREATININE 0.51 MG/DL (0.55-1.02); GFR AFRICAN AMERICAN 102 ML/MIN (>=60); GFR NON AFRICAN AMERICAN 88 ML/MIN (>=60); GLUCOSE, SERUM 157 MG/DL (60-99); SODIUM, SERUM 150 MMOL/L (135-148)
[2016-06-15 06:10] LABS: POTASSIUM, SERUM 4.6 MMOL/L (3.5-5.3)
[2016-06-15 06:20] LABS: HEMATOCRIT 40.9 % (36.0-48.0); HEMOGLOBIN 13.6 g/dL (12.0-16.0); MEAN CORPUS HGB CONC 33.3 g/dL (32.0-36.0); MEAN CORPUSCULAR HEMOGLOB 30.6 pg (26.0-34.0); MEAN CORPUSCULAR VOLUME 92.1 fL (80-100); MEAN PLATELET VOLUME 11.4 fL (9.2-13.0); NUCLEATED RED BLOOD CELLS 0.5 /100WBC (0-0); PLATELET COUNT 198 10/3/uL (150-400); RBC DISTRIBUTION WIDTH 16.1 % (12.0-16.0); RED CELL COUNT 4.44 10/6/uL (4.0-5.6)
[2016-06-15 06:21] LABS: WHITE BLOOD CELLS 53.5 10/3/uL (4.5-10.5)
[2016-06-15 06:22] LABS: MANUAL DIFF YES %
[2016-06-15 07:12] LABS: BAND NEUTROPHILS 14 %; IMMATURE GRANS ABSOLUTE (CALC) 4.28 10/3/uL (0.0-0.11); LYMPHOCYTES 4 %; LYMPHOCYTES ABSOLUTE (CALC) 2.14 10/3/uL (0.67-4.30); METAMYELOCYTES 6 %; MONOCYTES 2 %; MONOCYTES ABSOLUTE (CALC) 1.07 10/3/uL (0.21-1.20); MYELOCYTES 2 %; NEUTROPHILS ABSOLUTE (CALC) 46.01 10/3/uL (2.02-8.40); PLATELET ESTIMATE ADQ (ADEQUATE); RBC MORPHOLOGY NORM (NORMAL); SEGMENTED NEUTROPHIL (0) 72 %; TOTAL NUCLEATED CELLS 100
[2016-06-15 09:30] LABS: PHOSPHORUS, SERUM 2.7 MG/DL (2.5-4.5)
[2016-06-16 05:41] LABS: HEMATOCRIT 37.4 % (36.0-48.0); HEMOGLOBIN 12.3 g/dL (12.0-16.0); MEAN CORPUS HGB CONC 32.9 g/dL (32.0-36.0); MEAN CORPUSCULAR HEMOGLOB 30.4 pg (26.0-34.0); MEAN CORPUSCULAR VOLUME 92.3 fL (80-100); MEAN PLATELET VOLUME 11.9 fL (9.2-13.0); NUCLEATED RED BLOOD CELLS 0.2 /100WBC (0-0); PLATELET COUNT 143 10/3/uL (150-400); RBC DISTRIBUTION WIDTH 16.1 % (12.0-16.0); RED CELL COUNT 4.05 10/6/uL (4.0-5.6)
[2016-06-16 05:43] LABS: MANUAL DIFF YES %; WHITE BLOOD CELLS 45.2 10/3/uL (4.5-10.5)
[2016-06-16 05:50] LABS: CALCIUM, SERUM 7.8 MG/DL (8.5-10.4); CHLORIDE, SERUM 118 MMOL/L (96-112); CO2 (CARBON DIOXIDE) 22 MMOL/L (24-34); CREATININE 0.49 MG/DL (0.55-1.02); GFR AFRICAN AMERICAN 103 ML/MIN (>=60); GFR NON AFRICAN AMERICAN 89 ML/MIN (>=60); GLUCOSE, SERUM 166 MG/DL (60-99); PHOSPHORUS, SERUM 2.9 MG/DL (2.5-4.5); POTASSIUM, SERUM 4.4 MMOL/L (3.5-5.3); SODIUM, SERUM 150 MMOL/L (135-148); TRIGLYCERIDE 231 MG/DL (< 150)
[2016-06-16 05:53] LABS: BUN (BLOOD UREA NITROGEN) 34 MG/DL (6-23)
[2016-06-16 06:26] LABS: BAND NEUTROPHILS 13 %; EOSINOPHILS 1 %; EOSINOPHILS ABSOLUTE (CALC) 0.45 10/3/uL (0.0-0.53); IMMATURE GRANS ABSOLUTE (CALC) 4.52 10/3/uL (0.0-0.11); LYMPHOCYTES 1 %; LYMPHOCYTES ABSOLUTE (CALC) 0.45 10/3/uL (0.67-4.30); METAMYELOCYTES 8 %; MONOCYTES 1 %; MONOCYTES ABSOLUTE (CALC) 0.45 10/3/uL (0.21-1.20); MYELOCYTES 2 %; NEUTROPHILS ABSOLUTE (CALC) 39.32 10/3/uL (2.02-8.40); SEGMENTED NEUTROPHIL (0) 74 %; TOTAL NUCLEATED CELLS 100
[2016-06-16 06:28] LABS: PLATELET ESTIMATE SLT DEC (ADEQUATE); SPHEROCYTES OCC (0-2/OIF)
[2016-06-17 08:05] LABS: HEMATOCRIT 35.5 % (36.0-48.0); HEMOGLOBIN 11.5 g/dL (12.0-16.0); MEAN CORPUS HGB CONC 32.4 g/dL (32.0-36.0); MEAN CORPUSCULAR HEMOGLOB 29.6 pg (26.0-34.0); MEAN CORPUSCULAR VOLUME 91.5 fL (80-100); PLATELET COUNT 124 10/3/uL (150-400); RBC DISTRIBUTION WIDTH 16.4 % (12.0-16.0); RED CELL COUNT 3.88 10/6/uL (4.0-5.6)
[2016-06-17 08:07] LABS: MANUAL DIFF YES %
[2016-06-17 08:17] LABS: ALBUMIN 1.2 G/DL (3.5-5.0); BUN (BLOOD UREA NITROGEN) 33 MG/DL (6-23); CALCIUM, SERUM 7.3 MG/DL (8.5-10.4); CHLORIDE, SERUM 112 MMOL/L (96-112); CO2 (CARBON DIOXIDE) 24 MMOL/L (24-34); CREATININE 0.54 MG/DL (0.55-1.02); GFR AFRICAN AMERICAN 100 ML/MIN (>=60); GFR NON AFRICAN AMERICAN 86 ML/MIN (>=60); GLUCOSE, SERUM 152 MG/DL (60-99); PHOSPHORUS, SERUM 2.7 MG/DL (2.5-4.5); POTASSIUM, SERUM 4.2 MMOL/L (3.5-5.3); SODIUM, SERUM 144 MMOL/L (135-148)
[2016-06-17 08:28] LABS: BAND NEUTROPHILS 4 %; EOSINOPHILS 1 %; EOSINOPHILS ABSOLUTE (CALC) 0.46 10/3/uL (0.0-0.53); IMMATURE GRANS ABSOLUTE (CALC) 5.06 10/3/uL (0.0-0.11); LYMPHOCYTES 4 %; LYMPHOCYTES ABSOLUTE (CALC) 1.84 10/3/uL (0.67-4.30); METAMYELOCYTES 9 %; MONOCYTES 3 %; MONOCYTES ABSOLUTE (CALC) 1.38 10/3/uL (0.21-1.20); MYELOCYTES 2 %; NEUTROPHILS ABSOLUTE (CALC) 37.26 10/3/uL (2.02-8.40); SEGMENTED NEUTROPHIL (0) 77 %; TOTAL NUCLEATED CELLS 100
[2016-06-17 08:29] LABS: PLATELET ESTIMATE SLT DEC (ADEQUATE); RBC MORPHOLOGY NORM (NORMAL)
[2016-06-18 07:11] LABS: HEMATOCRIT 33.2 % (36.0-48.0); HEMOGLOBIN 10.9 g/dL (12.0-16.0); MEAN CORPUS HGB CONC 32.8 g/dL (32.0-36.0); MEAN CORPUSCULAR HEMOGLOB 29.9 pg (26.0-34.0); MEAN PLATELET VOLUME 12.1 fL (9.2-13.0); PLATELET COUNT 117 10/3/uL (150-400); RBC DISTRIBUTION WIDTH 16.3 % (12.0-16.0); RED CELL COUNT 3.65 10/6/uL (4.0-5.6)
[2016-06-18 07:13] LABS: MANUAL DIFF YES %; WHITE BLOOD CELLS 42.4 10/3/uL (4.5-10.5)
[2016-06-18 07:19] LABS: ALBUMIN 1.2 G/DL (3.5-5.0); CALCIUM, SERUM 7.1 MG/DL (8.5-10.4); CHLORIDE, SERUM 108 MMOL/L (96-112); CREATININE 0.55 MG/DL (0.55-1.02); GFR AFRICAN AMERICAN 99 ML/MIN (>=60); GFR NON AFRICAN AMERICAN 86 ML/MIN (>=60); GLUCOSE, SERUM 135 MG/DL (60-99); PHOSPHORUS, SERUM 2.9 MG/DL (2.5-4.5); POTASSIUM, SERUM 4.9 MMOL/L (3.5-5.3)
[2016-06-18 07:21] LABS: BUN (BLOOD UREA NITROGEN) 38 MG/DL (6-23); CO2 (CARBON DIOXIDE) 19 MMOL/L (24-34); SODIUM, SERUM 136 MMOL/L (135-148)
[2016-06-18 07:30] LABS: BAND NEUTROPHILS 7 %; LYMPHOCYTES 6 %; LYMPHOCYTES ABSOLUTE (CALC) 2.54 10/3/uL (0.67-4.30); METAMYELOCYTES 3 %; MONOCYTES 2 %; MONOCYTES ABSOLUTE (CALC) 0.85 10/3/uL (0.21-1.20); MYELOCYTES 1 %; NEUTROPHILS ABSOLUTE (CALC) 37.31 10/3/uL (2.02-8.40); PLATELET ESTIMATE SLT DEC (ADEQUATE); RBC MORPHOLOGY NORM (NORMAL); SEGMENTED NEUTROPHIL (0) 81 %; TOTAL NUCLEATED CELLS 100
[2016-06-18 12:40] LABS: HEMATOCRIT 33.4 % (36.0-48.0); HEMOGLOBIN 10.9 g/dL (12.0-16.0)
[2016-06-18 15:46] LABS: HEMATOCRIT 32.8 % (36.0-48.0); HEMOGLOBIN 10.7 g/dL (12.0-16.0)
[2016-06-18 19:40] LABS: HEMATOCRIT 32.9 % (36.0-48.0); HEMOGLOBIN 11.1 g/dL (12.0-16.0)
[2016-06-18 23:52] LABS: HEMATOCRIT 29.8 % (36.0-48.0); HEMOGLOBIN 9.9 g/dL (12.0-16.0)
[2016-06-19 02:53] LABS: HEMATOCRIT 30.3 % (36.0-48.0); HEMOGLOBIN 10.2 g/dL (12.0-16.0); MEAN CORPUS HGB CONC 33.7 g/dL (32.0-36.0); MEAN CORPUSCULAR HEMOGLOB 30.4 pg (26.0-34.0); MEAN CORPUSCULAR VOLUME 90.4 fL (80-100); MEAN PLATELET VOLUME 12.7 fL (9.2-13.0); PLATELET COUNT 140 10/3/uL (150-400); RBC DISTRIBUTION WIDTH 16.2 % (12.0-16.0); RED CELL COUNT 3.35 10/6/uL (4.0-5.6)
[2016-06-19 02:56] LABS: WHITE BLOOD CELLS 35.2 10/3/uL (4.5-10.5)
[2016-06-19 02:58] LABS: MANUAL DIFF YES %
[2016-06-19 03:01] LABS: ALBUMIN 1.1 G/DL (3.5-5.0); CHLORIDE, SERUM 110 MMOL/L (96-112); CO2 (CARBON DIOXIDE) 22 MMOL/L (24-34); CREATININE 0.63 MG/DL (0.55-1.02); GFR AFRICAN AMERICAN 95 ML/MIN (>=60); GFR NON AFRICAN AMERICAN 82 ML/MIN (>=60); GLUCOSE, SERUM 134 MG/DL (60-99); POTASSIUM, SERUM 4.8 MMOL/L (3.5-5.3); SODIUM, SERUM 142 MMOL/L (135-148)
[2016-06-19 03:02] LABS: BUN (BLOOD UREA NITROGEN) 42 MG/DL (6-23)
[2016-06-19 03:05] LABS: ANISOCYTOSIS 1+ (5-10/OIF) (0-5/OIF); BAND NEUTROPHILS 7 %; LYMPHOCYTES 5 %; LYMPHOCYTES ABSOLUTE (CALC) 1.76 10/3/uL (0.67-4.30); PLATELET ESTIMATE ADQ (ADEQUATE); RBC MORPHOLOGY ABN (NORMAL); TOTAL NUCLEATED CELLS 100
[2016-06-19 07:14] LABS: HEMATOCRIT 32.8 % (36.0-48.0); HEMOGLOBIN 10.9 g/dL (12.0-16.0)
[2016-06-19 11:52] LABS: MONOCYTES 8 %; SEGMENTED NEUTROPHIL (0) 65 %
[2016-06-19 11:53] LABS: METAMYELOCYTES 9 %; MYELOCYTES 8 %; NEUTROPHILS ABSOLUTE (CALC) 25.34 10/3/uL (2.02-8.40)
[2016-06-19 11:54] LABS: IMMATURE GRANS ABSOLUTE (CALC) 5.98 10/3/uL (0.0-0.11); MONOCYTES ABSOLUTE (CALC) 2.82 10/3/uL (0.21-1.20)
[2016-06-20 03:41] LABS: HEMATOCRIT 31.7 % (36.0-48.0); HEMOGLOBIN 10.8 g/dL (12.0-16.0); MANUAL DIFF YES %; MEAN CORPUS HGB CONC 34.1 g/dL (32.0-36.0); MEAN CORPUSCULAR HEMOGLOB 30.7 pg (26.0-34.0); MEAN CORPUSCULAR VOLUME 90.1 fL (80-100); MEAN PLATELET VOLUME 12.4 fL (9.2-13.0); NUCLEATED RED BLOOD CELLS 0.1 /100WBC (0-0); PLATELET COUNT 211 10/3/uL (150-400); RBC DISTRIBUTION WIDTH 16.3 % (12.0-16.0); RED CELL COUNT 3.52 10/6/uL (4.0-5.6); WHITE BLOOD CELLS 35.3 10/3/uL (4.5-10.5)
[2016-06-20 03:45] LABS: ALBUMIN 1.2 G/DL (3.5-5.0); BUN (BLOOD UREA NITROGEN) 42 MG/DL (6-23); CALCIUM, SERUM 7.1 MG/DL (8.5-10.4); CHLORIDE, SERUM 107 MMOL/L (96-112); CO2 (CARBON DIOXIDE) 22 MMOL/L (24-34); CREATININE 0.56 MG/DL (0.55-1.02); GFR AFRICAN AMERICAN 99 ML/MIN (>=60); GFR NON AFRICAN AMERICAN 85 ML/MIN (>=60); GLUCOSE, SERUM 121 MG/DL (60-99); PHOSPHORUS, SERUM 3.3 MG/DL (2.5-4.5); POTASSIUM, SERUM 4.7 MMOL/L (3.5-5.3); SODIUM, SERUM 138 MMOL/L (135-148)
[2016-06-20 03:56] LABS: ANISOCYTOSIS 1+ (5-10/OIF) (0-5/OIF); BAND NEUTROPHILS 5 %; IMMATURE GRANS ABSOLUTE (CALC) 5.65 10/3/uL (0.0-0.11); LYMPHOCYTES 4 %; LYMPHOCYTES ABSOLUTE (CALC) 1.41 10/3/uL (0.67-4.30); METAMYELOCYTES 6 %; MONOCYTES 7 %; MONOCYTES ABSOLUTE (CALC) 2.47 10/3/uL (0.21-1.20); MYELOCYTES 10 %; NEUTROPHILS ABSOLUTE (CALC) 25.77 10/3/uL (2.02-8.40); PLATELET ESTIMATE ADQ (ADEQUATE); RBC MORPHOLOGY ABN (NORMAL); SEGMENTED NEUTROPHIL (0) 68 %; TOTAL NUCLEATED CELLS 100
[2016-06-21 06:55] LABS: HEMATOCRIT 31.9 % (36.0-48.0); HEMOGLOBIN 10.7 g/dL (12.0-16.0); MEAN CORPUS HGB CONC 33.5 g/dL (32.0-36.0); MEAN CORPUSCULAR HEMOGLOB 30.2 pg (26.0-34.0); MEAN CORPUSCULAR VOLUME 90.1 fL (80-100); MEAN PLATELET VOLUME 12.1 fL (9.2-13.0); PLATELET COUNT 255 10/3/uL (150-400); RBC DISTRIBUTION WIDTH 16.2 % (12.0-16.0); RED CELL COUNT 3.54 10/6/uL (4.0-5.6)
[2016-06-21 06:58] LABS: ALBUMIN 1.2 G/DL (3.5-5.0); BUN (BLOOD UREA NITROGEN) 38 MG/DL (6-23); CALCIUM, SERUM 7.2 MG/DL (8.5-10.4); CHLORIDE, SERUM 108 MMOL/L (96-112); CO2 (CARBON DIOXIDE) 20 MMOL/L (24-34); CREATININE 0.45 MG/DL (0.55-1.02); GFR AFRICAN AMERICAN 106 ML/MIN (>=60); GFR NON AFRICAN AMERICAN 91 ML/MIN (>=60); GLUCOSE, SERUM 117 MG/DL (60-99); PHOSPHORUS, SERUM 3.3 MG/DL (2.5-4.5); POTASSIUM, SERUM 4.5 MMOL/L (3.5-5.3); SODIUM, SERUM 138 MMOL/L (135-148)
[2016-06-21 07:14] LABS: MANUAL DIFF YES %; WHITE BLOOD CELLS 29.4 10/3/uL (4.5-10.5)
[2016-06-21 08:09] LABS: BAND NEUTROPHILS 7 %; EOSINOPHILS 1 %; EOSINOPHILS ABSOLUTE (CALC) 0.29 10/3/uL (0.0-0.53); IMMATURE GRANS ABSOLUTE (CALC) 2.35 10/3/uL (0.0-0.11); LYMPHOCYTES 9 %; LYMPHOCYTES ABSOLUTE (CALC) 2.65 10/3/uL (0.67-4.30); METAMYELOCYTES 5 %; MONOCYTES 15 %; MONOCYTES ABSOLUTE (CALC) 4.41 10/3/uL (0.21-1.20); MYELOCYTES 3 %; PLATELET ESTIMATE ADQ (ADEQUATE); POLYCHROMASIA 1+ (2-5/OIF) (0-1/OIF); SEGMENTED NEUTROPHIL (0) 60 %; TOTAL NUCLEATED CELLS 100
[2016-06-22 06:34] LABS: ALBUMIN 1.1 G/DL (3.5-5.0); BUN (BLOOD UREA NITROGEN) 40 MG/DL (6-23); CALCIUM, SERUM 7.3 MG/DL (8.5-10.4); CHLORIDE, SERUM 107 MMOL/L (96-112); CO2 (CARBON DIOXIDE) 21 MMOL/L (24-34); CREATININE 0.53 MG/DL (0.55-1.02); GFR AFRICAN AMERICAN 100 ML/MIN (>=60); GFR NON AFRICAN AMERICAN 87 ML/MIN (>=60); GLUCOSE, SERUM 110 MG/DL (60-99); PHOSPHORUS, SERUM 3.2 MG/DL (2.5-4.5); POTASSIUM, SERUM 4.6 MMOL/L (3.5-5.3); SODIUM, SERUM 137 MMOL/L (135-148)
[2016-06-22 06:55] LABS: HEMATOCRIT 30.7 % (36.0-48.0); HEMOGLOBIN 10.3 g/dL (12.0-16.0); MEAN CORPUS HGB CONC 33.6 g/dL (32.0-36.0); MEAN CORPUSCULAR HEMOGLOB 30.3 pg (26.0-34.0); MEAN CORPUSCULAR VOLUME 90.3 fL (80-100); MEAN PLATELET VOLUME 12.2 fL (9.2-13.0); PLATELET COUNT 310 10/3/uL (150-400); RBC DISTRIBUTION WIDTH 16.6 % (12.0-16.0)
[2016-06-22 06:56] LABS: WHITE BLOOD CELLS 30.3 10/3/uL (4.5-10.5)
[2016-06-22 06:57] LABS: MANUAL DIFF YES %
[2016-06-22 07:04] LABS: BAND NEUTROPHILS 11 %; IMMATURE GRANS ABSOLUTE (CALC) 4.85 10/3/uL (0.0-0.11); LYMPHOCYTES 5 %; LYMPHOCYTES ABSOLUTE (CALC) 1.52 10/3/uL (0.67-4.30); METAMYELOCYTES 8 %; MONOCYTES 5 %; MONOCYTES ABSOLUTE (CALC) 1.52 10/3/uL (0.21-1.20); MYELOCYTES 8 %; NEUTROPHILS ABSOLUTE (CALC) 22.42 10/3/uL (2.02-8.40); PLATELET ESTIMATE ADQ (ADEQUATE); SEGMENTED NEUTROPHIL (0) 63 %; TOTAL NUCLEATED CELLS 100
[2016-06-22 07:05] LABS: RBC MORPHOLOGY NORM (NORMAL)
[2016-06-23 07:21] LABS: HEMATOCRIT 28.2 % (36.0-48.0); HEMOGLOBIN 9.4 g/dL (12.0-16.0); INTERNATIONAL NORMAL RATI 1.3 UNITS (-); MEAN CORPUS HGB CONC 33.3 g/dL (32.0-36.0); MEAN CORPUSCULAR HEMOGLOB 30.2 pg (26.0-34.0); MEAN CORPUSCULAR VOLUME 90.7 fL (80-100); MEAN PLATELET VOLUME 11.3 fL (9.2-13.0); NUCLEATED RED BLOOD CELLS 0.1 /100WBC (0-0); PLATELET COUNT 323 10/3/uL (150-400); PROTIME (NOT ORD) 16.4 SEC (12.0-14.5); RED CELL COUNT 3.11 10/6/uL (4.0-5.6)
[2016-06-23 07:22] LABS: MANUAL DIFF YES %
[2016-06-23 07:28] LABS: ALBUMIN 1.2 G/DL (3.5-5.0); BUN (BLOOD UREA NITROGEN) 38 MG/DL (6-23); CALCIUM, SERUM 7.2 MG/DL (8.5-10.4); CHLORIDE, SERUM 108 MMOL/L (96-112); CO2 (CARBON DIOXIDE) 21 MMOL/L (24-34); GFR AFRICAN AMERICAN 102 ML/MIN (>=60); GFR NON AFRICAN AMERICAN 88 ML/MIN (>=60); GLUCOSE, SERUM 115 MG/DL (60-99); PHOSPHORUS, SERUM 2.9 MG/DL (2.5-4.5); SODIUM, SERUM 138 MMOL/L (135-148)
[2016-06-23 07:42] LABS: ANISOCYTOSIS 1+ (5-10/OIF) (0-5/OIF); BAND NEUTROPHILS 9 %; EOSINOPHILS 2 %; LYMPHOCYTES 8 %; MACROCYTES 1+ (5-10/OIF) (0-5/OIF); METAMYELOCYTES 10 %; MONOCYTES 5 %; MONOCYTES ABSOLUTE (CALC) 1.25 10/3/uL (0.21-1.20); MYELOCYTES 2 %; NEUTROPHILS ABSOLUTE (CALC) 18.25 10/3/uL (2.02-8.40); PLATELET ESTIMATE ADQ (ADEQUATE); POLYCHROMASIA 1+ (2-5/OIF) (0-1/OIF); SEGMENTED NEUTROPHIL (0) 64 %; TOTAL NUCLEATED CELLS 100
[2016-06-24 06:35] LABS: HEMATOCRIT 26.9 % (36.0-48.0); MEAN CORPUS HGB CONC 33.5 g/dL (32.0-36.0); MEAN CORPUSCULAR HEMOGLOB 30.6 pg (26.0-34.0); MEAN CORPUSCULAR VOLUME 91.5 fL (80-100); MEAN PLATELET VOLUME 11.2 fL (9.2-13.0); PLATELET COUNT 337 10/3/uL (150-400); RBC DISTRIBUTION WIDTH 17.4 % (12.0-16.0); RED CELL COUNT 2.94 10/6/uL (4.0-5.6)
[2016-06-24 06:38] LABS: MANUAL DIFF YES %
[2016-06-24 06:41] LABS: CALCIUM, SERUM 7.3 MG/DL (8.5-10.4); CHLORIDE, SERUM 112 MMOL/L (96-112); CO2 (CARBON DIOXIDE) 19 MMOL/L (24-34); CREATININE 0.34 MG/DL (0.55-1.02); GFR AFRICAN AMERICAN 116 ML/MIN (>=60); GFR NON AFRICAN AMERICAN 100 ML/MIN (>=60); GLUCOSE, SERUM 115 MG/DL (60-99); PHOSPHORUS, SERUM 3.1 MG/DL (2.5-4.5); POTASSIUM, SERUM 4.2 MMOL/L (3.5-5.3); SODIUM, SERUM 140 MMOL/L (135-148)
[2016-06-24 06:43] LABS: BUN (BLOOD UREA NITROGEN) 34 MG/DL (6-23); TRIGLYCERIDE 126 MG/DL (< 150)
[2016-06-24 06:55] LABS: BAND NEUTROPHILS 3 %; EOSINOPHILS 1 %; EOSINOPHILS ABSOLUTE (CALC) 0.23 10/3/uL (0.0-0.53); IMMATURE GRANS ABSOLUTE (CALC) 1.15 10/3/uL (0.0-0.11); LYMPHOCYTES 3 %; LYMPHOCYTES ABSOLUTE (CALC) 0.69 10/3/uL (0.67-4.30); METAMYELOCYTES 3 %; MONOCYTES 6 %; MONOCYTES ABSOLUTE (CALC) 1.38 10/3/uL (0.21-1.20); MYELOCYTES 2 %; NEUTROPHILS ABSOLUTE (CALC) 19.55 10/3/uL (2.02-8.40); SEGMENTED NEUTROPHIL (0) 82 %; TOTAL NUCLEATED CELLS 100
[2016-06-24 06:56] LABS: ANISOCYTOSIS 1+ (5-10/OIF) (0-5/OIF); PLATELET ESTIMATE ADQ (ADEQUATE); POLYCHROMASIA 1+ (2-5/OIF) (0-1/OIF)
[2016-06-25 01:22] LABS: BE (BASE EXCESS) -10.5 MEQ/L (0 +/- 2.5); CARBOXYHEMOGLOBIN 0.3 % (0-3); DEVICE NC; HEMOBLOGIN CONTENT 10.9 G/DL (12-16); INSTRUMENT SERIAL # 35151; METHEMOGLOBIN 0.7 % (0-3); O2 CONTENT 13.9 VOL% (18-24); OPERATOR ID 35190; PCO2 (CO2 TENSION) 51 MMHG (35-45); PO2 (O2 TENSION) 80 MMHG (79-93); SAMPLE Arterial; pH 7.16 (7.37-7.43)
[2016-06-25 01:23] LABS: ALLENS TEST Pos
[2016-06-25 04:52] LABS: ALLENS TEST Pos; BE (BASE EXCESS) -7.8 MEQ/L (0 +/- 2.5); DEVICE NC; HCO3 (ACTUAL BICARBONATE) 17.5 MEQ/L (23-27); HEMOBLOGIN CONTENT 8.8 G/DL (12-16); INSTRUMENT SERIAL # 8087; METHEMOGLOBIN 0.2 % (0-3); O2 CONTENT 11.7 VOL% (18-24); OPERATOR ID 33449; PCO2 (CO2 TENSION) 34 MMHG (35-45); PO2 (O2 TENSION) 81 MMHG (79-93); SAMPLE Arterial; pH 7.33 (7.37-7.43)
[2016-06-25 05:39] LABS: CALCIUM, SERUM 7.7 MG/DL (8.5-10.4); CHLORIDE, SERUM 110 MMOL/L (96-112); CO2 (CARBON DIOXIDE) 19 MMOL/L (24-34); CREATININE 0.53 MG/DL (0.55-1.02); GFR AFRICAN AMERICAN 100 ML/MIN (>=60); GFR NON AFRICAN AMERICAN 87 ML/MIN (>=60); GLUCOSE, SERUM 116 MG/DL (60-99); PHOSPHORUS, SERUM 3.6 MG/DL (2.5-4.5); POTASSIUM, SERUM 4.3 MMOL/L (3.5-5.3); SODIUM, SERUM 141 MMOL/L (135-148)
[2016-06-25 05:54] LABS: HEMATOCRIT 25.7 % (36.0-48.0); HEMOGLOBIN 8.3 g/dL (12.0-16.0); MEAN CORPUS HGB CONC 32.3 g/dL (32.0-36.0); MEAN CORPUSCULAR VOLUME 92.8 fL (80-100); MEAN PLATELET VOLUME 10.7 fL (9.2-13.0); PLATELET COUNT 366 10/3/uL (150-400); RBC DISTRIBUTION WIDTH 17.4 % (12.0-16.0); RED CELL COUNT 2.77 10/6/uL (4.0-5.6)
[2016-06-25 05:55] LABS: BUN (BLOOD UREA NITROGEN) 40 MG/DL (6-23)
[2016-06-25 05:57] LABS: WHITE BLOOD CELLS 26.6 10/3/uL (4.5-10.5)
[2016-06-25 05:58] LABS: MANUAL DIFF YES %
[2016-06-25 06:22] LABS: ANISOCYTOSIS 1+ (5-10/OIF) (0-5/OIF); BAND NEUTROPHILS 2 %; IMMATURE GRANS ABSOLUTE (CALC) 0.53 10/3/uL (0.0-0.11); LYMPHOCYTES 3 %; MONOCYTES 2 %; MONOCYTES ABSOLUTE (CALC) 0.53 10/3/uL (0.21-1.20); MYELOCYTES 2 %; NEUTROPHILS ABSOLUTE (CALC) 24.74 10/3/uL (2.02-8.40); PLATELET ESTIMATE ADQ (ADEQUATE); RBC MORPHOLOGY ABN (NORMAL); SEGMENTED NEUTROPHIL (0) 91 %; TOTAL NUCLEATED CELLS 100
[2016-06-25 19:28] LABS: HEMATOCRIT 24.4 % (36.0-48.0); HEMOGLOBIN 8.2 g/dL (12.0-16.0)
[2016-06-25 23:50] LABS: HEMATOCRIT 24.6 % (36.0-48.0); HEMOGLOBIN 8.1 g/dL (12.0-16.0)
[2016-06-26 06:00] LABS: HEMATOCRIT 24.5 % (36.0-48.0); MEAN CORPUS HGB CONC 32.7 g/dL (32.0-36.0); MEAN CORPUSCULAR HEMOGLOB 30.9 pg (26.0-34.0); MEAN CORPUSCULAR VOLUME 94.6 fL (80-100); MEAN PLATELET VOLUME 10.3 fL (9.2-13.0); PLATELET COUNT 309 10/3/uL (150-400); RBC DISTRIBUTION WIDTH 18.2 % (12.0-16.0); RED CELL COUNT 2.59 10/6/uL (4.0-5.6)
[2016-06-26 06:05] LABS: MANUAL DIFF YES %; WHITE BLOOD CELLS 15.4 10/3/uL (4.5-10.5)
[2016-06-26 06:24] LABS: CALCIUM, SERUM 7.6 MG/DL (8.5-10.4); CHLORIDE, SERUM 115 MMOL/L (96-112); CO2 (CARBON DIOXIDE) 21 MMOL/L (24-34); GFR AFRICAN AMERICAN 102 ML/MIN (>=60); GFR NON AFRICAN AMERICAN 88 ML/MIN (>=60); SODIUM, SERUM 145 MMOL/L (135-148)
[2016-06-26 06:25] LABS: BUN (BLOOD UREA NITROGEN) 27 MG/DL (6-23); GLUCOSE, SERUM 89 MG/DL (60-99); POTASSIUM, SERUM 4.3 MMOL/L (3.5-5.3)
[2016-06-26 06:51] LABS: BAND NEUTROPHILS 1 %; EOSINOPHILS 1 %; EOSINOPHILS ABSOLUTE (CALC) 0.15 10/3/uL (0.0-0.53); LYMPHOCYTES 9 %; LYMPHOCYTES ABSOLUTE (CALC) 1.39 10/3/uL (0.67-4.30); MONOCYTES 4 %; MONOCYTES ABSOLUTE (CALC) 0.62 10/3/uL (0.21-1.20); NEUTROPHILS ABSOLUTE (CALC) 13.24 10/3/uL (2.02-8.40); SEGMENTED NEUTROPHIL (0) 85 %; TOTAL NUCLEATED CELLS 100
[2016-06-26 06:52] LABS: ANISOCYTOSIS 1+ (5-10/OIF) (0-5/OIF); PLATELET ESTIMATE ADQ (ADEQUATE)
[2016-06-26 16:05] LABS: HEMOGLOBIN 9.3 g/dL (12.0-16.0)
[2016-06-26 16:09] LABS: HEMATOCRIT 28.3 % (36.0-48.0)
[2016-06-27 05:49] LABS: HEMATOCRIT 27.5 % (36.0-48.0); HEMOGLOBIN 8.9 g/dL (12.0-16.0); MEAN CORPUS HGB CONC 32.4 g/dL (32.0-36.0); MEAN CORPUSCULAR HEMOGLOB 30.3 pg (26.0-34.0); MEAN CORPUSCULAR VOLUME 93.5 fL (80-100); PLATELET COUNT 338 10/3/uL (150-400); RBC DISTRIBUTION WIDTH 17.9 % (12.0-16.0); RED CELL COUNT 2.94 10/6/uL (4.0-5.6); WHITE BLOOD CELLS 12.4 10/3/uL (4.5-10.5)
[2016-06-27 05:54] LABS: MANUAL DIFF YES %
[2016-06-27 05:56] LABS: CALCIUM, SERUM 7.5 MG/DL (8.5-10.4); CHLORIDE, SERUM 111 MMOL/L (96-112); CO2 (CARBON DIOXIDE) 25 MMOL/L (24-34); CREATININE 0.48 MG/DL (0.55-1.02); GFR AFRICAN AMERICAN 104 ML/MIN (>=60); GFR NON AFRICAN AMERICAN 89 ML/MIN (>=60); SODIUM, SERUM 142 MMOL/L (135-148)
[2016-06-27 05:57] LABS: BUN (BLOOD UREA NITROGEN) 18 MG/DL (6-23); GLUCOSE, SERUM 109 MG/DL (60-99); POTASSIUM, SERUM 3.3 MMOL/L (3.5-5.3)
[2016-06-27 06:14] LABS: ANISOCYTOSIS 1+ (5-10/OIF) (0-5/OIF); EOSINOPHILS 1 %; EOSINOPHILS ABSOLUTE (CALC) 0.12 10/3/uL (0.0-0.53); LYMPHOCYTES 8 %; LYMPHOCYTES ABSOLUTE (CALC) 0.99 10/3/uL (0.67-4.30); MONOCYTES 2 %; MONOCYTES ABSOLUTE (CALC) 0.25 10/3/uL (0.21-1.20); NEUTROPHILS ABSOLUTE (CALC) 11.04 10/3/uL (2.02-8.40); PLATELET ESTIMATE ADQ (ADEQUATE); SEGMENTED NEUTROPHIL (0) 89 %; TOTAL NUCLEATED CELLS 100
[2016-06-27 12:27] LABS: PHOSPHORUS, SERUM 1.9 MG/DL (2.5-4.5)
[2016-06-28 09:15] LABS: HEMATOCRIT 27.6 % (36.0-48.0); MANUAL DIFF YES %; MEAN CORPUS HGB CONC 32.6 g/dL (32.0-36.0); MEAN CORPUSCULAR HEMOGLOB 30.5 pg (26.0-34.0); MEAN CORPUSCULAR VOLUME 93.6 fL (80-100); MEAN PLATELET VOLUME 10.1 fL (9.2-13.0); PLATELET COUNT 337 10/3/uL (150-400); RBC DISTRIBUTION WIDTH 18.1 % (12.0-16.0); RED CELL COUNT 2.95 10/6/uL (4.0-5.6); WHITE BLOOD CELLS 12.6 10/3/uL (4.5-10.5)
[2016-06-28 09:23] LABS: BUN (BLOOD UREA NITROGEN) 19 MG/DL (6-23); CALCIUM, SERUM 7.7 MG/DL (8.5-10.4); CHLORIDE, SERUM 111 MMOL/L (96-112); CO2 (CARBON DIOXIDE) 25 MMOL/L (24-34); CREATININE 0.45 MG/DL (0.55-1.02); GFR AFRICAN AMERICAN 106 ML/MIN (>=60); GFR NON AFRICAN AMERICAN 91 ML/MIN (>=60); PHOSPHORUS, SERUM 1.8 MG/DL (2.5-4.5); POTASSIUM, SERUM 3.5 MMOL/L (3.5-5.3); SODIUM, SERUM 141 MMOL/L (135-148)
[2016-06-28 09:26] LABS: GLUCOSE, SERUM 154 MG/DL (60-99)
[2016-06-28 09:29] LABS: BAND NEUTROPHILS 5 %; IMMATURE GRANS ABSOLUTE (CALC) 0.13 10/3/uL (0.0-0.11); LYMPHOCYTES 5 %; LYMPHOCYTES ABSOLUTE (CALC) 0.63 10/3/uL (0.67-4.30); METAMYELOCYTES 1 %; MONOCYTES 6 %; MONOCYTES ABSOLUTE (CALC) 0.76 10/3/uL (0.21-1.20); NEUTROPHILS ABSOLUTE (CALC) 11.09 10/3/uL (2.02-8.40); PLATELET ESTIMATE ADQ (ADEQUATE); SEGMENTED NEUTROPHIL (0) 83 %; TOTAL NUCLEATED CELLS 100
[2016-06-28 09:30] LABS: ANISOCYTOSIS 1+ (5-10/OIF) (0-5/OIF)
[2016-06-29 05:27] LABS: BUN (BLOOD UREA NITROGEN) 26 MG/DL (6-23); CALCIUM, SERUM 7.7 MG/DL (8.5-10.4); CHLORIDE, SERUM 112 MMOL/L (96-112); CO2 (CARBON DIOXIDE) 25 MMOL/L (24-34); CREATININE 0.37 MG/DL (0.55-1.02); GFR AFRICAN AMERICAN 113 ML/MIN (>=60); GFR NON AFRICAN AMERICAN 97 ML/MIN (>=60); GLUCOSE, SERUM 151 MG/DL (60-99); PHOSPHORUS, SERUM 2.5 MG/DL (2.5-4.5); POTASSIUM, SERUM 4.1 MMOL/L (3.5-5.3); SODIUM, SERUM 143 MMOL/L (135-148)
[2016-06-29 05:32] LABS: HEMATOCRIT 26.4 % (36.0-48.0); HEMOGLOBIN 8.5 g/dL (12.0-16.0); MEAN CORPUS HGB CONC 32.2 g/dL (32.0-36.0); MEAN CORPUSCULAR HEMOGLOB 30.4 pg (26.0-34.0); MEAN CORPUSCULAR VOLUME 94.3 fL (80-100); MEAN PLATELET VOLUME 10.1 fL (9.2-13.0); PLATELET COUNT 307 10/3/uL (150-400); RBC DISTRIBUTION WIDTH 17.8 % (12.0-16.0); WHITE BLOOD CELLS 11.6 10/3/uL (4.5-10.5)
[2016-06-29 05:41] LABS: MANUAL DIFF YES %
[2016-06-29 06:31] LABS: ANISOCYTOSIS 1+ (5-10/OIF) (0-5/OIF); EOSINOPHILS 5 %; EOSINOPHILS ABSOLUTE (CALC) 0.58 10/3/uL (0.0-0.53); IMMATURE GRANS ABSOLUTE (CALC) 0.46 10/3/uL (0.0-0.11); LYMPHOCYTES 14 %; LYMPHOCYTES ABSOLUTE (CALC) 1.62 10/3/uL (0.67-4.30); METAMYELOCYTES 2 %; MONOCYTES 6 %; MYELOCYTES 2 %; NEUTROPHILS ABSOLUTE (CALC) 8.24 10/3/uL (2.02-8.40); PLATELET ESTIMATE ADQ (ADEQUATE); SEGMENTED NEUTROPHIL (0) 71 %; TOTAL NUCLEATED CELLS 100
[2016-06-30 04:30] LABS: HEMATOCRIT 26.1 % (36.0-48.0); HEMOGLOBIN 8.4 g/dL (12.0-16.0); MANUAL DIFF YES %; MEAN CORPUS HGB CONC 32.2 g/dL (32.0-36.0); MEAN CORPUSCULAR VOLUME 93.2 fL (80-100); MEAN PLATELET VOLUME 9.7 fL (9.2-13.0); PLATELET COUNT 291 10/3/uL (150-400); RBC DISTRIBUTION WIDTH 17.8 % (12.0-16.0)
[2016-06-30 04:40] LABS: BUN (BLOOD UREA NITROGEN) 28 MG/DL (6-23); CALCIUM, SERUM 7.9 MG/DL (8.5-10.4); CHLORIDE, SERUM 111 MMOL/L (96-112); CO2 (CARBON DIOXIDE) 23 MMOL/L (24-34); CREATININE 0.32 MG/DL (0.55-1.02); GFR AFRICAN AMERICAN 118 ML/MIN (>=60); GFR NON AFRICAN AMERICAN 101 ML/MIN (>=60); GLUCOSE, SERUM 127 MG/DL (60-99); PHOSPHORUS, SERUM 2.3 MG/DL (2.5-4.5); SODIUM, SERUM 142 MMOL/L (135-148)
[2016-06-30 04:54] LABS: ANISOCYTOSIS 1+ (5-10/OIF) (0-5/OIF); BAND NEUTROPHILS 2 %; BASOPHILS 2 %; BASOPHILS ABSOLUTE (CALC) 0.22 10/3/uL (0.0-0.16); EOSINOPHILS 8 %; EOSINOPHILS ABSOLUTE (CALC) 0.88 10/3/uL (0.0-0.53); IMMATURE GRANS ABSOLUTE (CALC) 0.33 10/3/uL (0.0-0.11); LYMPHOCYTES 15 %; LYMPHOCYTES ABSOLUTE (CALC) 0.55 10/3/uL (0.67-4.30); METAMYELOCYTES 3 %; MONOCYTES 7 %; MONOCYTES ABSOLUTE (CALC) 0.77 10/3/uL (0.21-1.20); NEUTROPHILS ABSOLUTE (CALC) 8.25 10/3/uL (2.02-8.40); PLATELET ESTIMATE ADQ (ADEQUATE); SEGMENTED NEUTROPHIL (0) 63 %; TOTAL NUCLEATED CELLS 100
[2016-06-30 05:07] LABS: PROCALCITONIN 0.11 ng/mL (<0.5)
[2016-06-30 15:16] LABS: ALLENS TEST Pos; BE (BASE EXCESS) -2.5 MEQ/L (0 +/- 2.5); CARBOXYHEMOGLOBIN 0.3 % (0-3); HCO3 (ACTUAL BICARBONATE) 20.9 MEQ/L (23-27); HEMOBLOGIN CONTENT 10.6 G/DL (12-16); INSTRUMENT SERIAL # 35151; METHEMOGLOBIN 0.8 % (0-3); O2 CONTENT 14.8 VOL% (18-24); PCO2 (CO2 TENSION) 31 MMHG (35-45); PO2 (O2 TENSION) 151 MMHG (79-93); SAMPLE Arterial; pH 7.44 (7.37-7.43)
[2016-07-01 06:04] LABS: BUN (BLOOD UREA NITROGEN) 34 MG/DL (6-23); CHLORIDE, SERUM 112 MMOL/L (96-112); CO2 (CARBON DIOXIDE) 21 MMOL/L (24-34); CREATININE 0.35 MG/DL (0.55-1.02); GFR AFRICAN AMERICAN 114 ML/MIN (>=60); GFR NON AFRICAN AMERICAN 99 ML/MIN (>=60); GLUCOSE, SERUM 127 MG/DL (60-99); PHOSPHORUS, SERUM 3.2 MG/DL (2.5-4.5); SODIUM, SERUM 143 MMOL/L (135-148)
[2016-07-01 06:08] LABS: HEMATOCRIT 25.8 % (36.0-48.0); HEMOGLOBIN 8.4 g/dL (12.0-16.0); MEAN CORPUS HGB CONC 32.6 g/dL (32.0-36.0); MEAN CORPUSCULAR HEMOGLOB 30.4 pg (26.0-34.0); MEAN CORPUSCULAR VOLUME 93.5 fL (80-100); PLATELET COUNT 262 10/3/uL (150-400); RBC DISTRIBUTION WIDTH 18.1 % (12.0-16.0); RED CELL COUNT 2.76 10/6/uL (4.0-5.6); WHITE BLOOD CELLS 11.5 10/3/uL (4.5-10.5)
[2016-07-01 06:10] LABS: MANUAL DIFF YES %
[2016-07-01 06:20] LABS: ANISOCYTOSIS 1+ (5-10/OIF) (0-5/OIF); BAND NEUTROPHILS 4 %; EOSINOPHILS 3 %; EOSINOPHILS ABSOLUTE (CALC) 0.35 10/3/uL (0.0-0.53); IMMATURE GRANS ABSOLUTE (CALC) 1.04 10/3/uL (0.0-0.11); LYMPHOCYTES 14 %; LYMPHOCYTES ABSOLUTE (CALC) 1.61 10/3/uL (0.67-4.30); METAMYELOCYTES 7 %; MONOCYTES 2 %; MONOCYTES ABSOLUTE (CALC) 0.23 10/3/uL (0.21-1.20); MYELOCYTES 2 %; NEUTROPHILS ABSOLUTE (CALC) 8.28 10/3/uL (2.02-8.40); PLATELET ESTIMATE ADQ (ADEQUATE); POLYCHROMASIA 1+ (2-5/OIF) (0-1/OIF); SEGMENTED NEUTROPHIL (0) 68 %; TOTAL NUCLEATED CELLS 100
[2016-07-02 06:24] LABS: BUN (BLOOD UREA NITROGEN) 31 MG/DL (6-23); CALCIUM, SERUM 8.1 MG/DL (8.5-10.4); CHLORIDE, SERUM 109 MMOL/L (96-112); CO2 (CARBON DIOXIDE) 22 MMOL/L (24-34); CREATININE 0.34 MG/DL (0.55-1.02); GFR AFRICAN AMERICAN 115 ML/MIN (>=60); GFR NON AFRICAN AMERICAN 99 ML/MIN (>=60); GLUCOSE, SERUM 127 MG/DL (60-99); POTASSIUM, SERUM 4.2 MMOL/L (3.5-5.3); SODIUM, SERUM 140 MMOL/L (135-148)
== END 2016-07-02 23:54 | disposition hospice, inpatient (51) | DRG 871 ==
LOC: ER 20:01 → 6NO 23:02
PROVIDERS: Hospitalist; Internal Medicine Pulmonary Disease; Nurse Practitioner Acute Care
PROC: 3E0336Z Introduction of Nutritional Substance into Peripheral Vein, Percutaneous Approach (ICD-10-PCS; principal; 2016-06-08)
PROC: 02HV33Z Insertion of Infusion Device into Superior Vena Cava, Percutaneous Approach (ICD-10-PCS; 2016-06-12)
PROC: 4A02X4A Measurement of Cardiac Electrical Activity, Guidance, External Approach (ICD-10-PCS; 2016-06-12)
DX: A41.9 Sepsis, unspecified organism (principal); E43 Unspecified severe protein-calorie malnutrition; J96.01 Acute respiratory failure with hypoxia; J69.0 Pneumonitis due to inhalation of food and vomit; G93.41 Metabolic encephalopathy; A04.7 Enterocolitis due to Clostridium difficile; K90.89 Other intestinal malabsorption; E87.0 Hyperosmolality and hypernatremia; B37.0 Candidal stomatitis; K92.1 Melena; Z51.5 Encounter for palliative care; J44.9 Chronic obstructive pulmonary disease, unspecified; R65.20 Severe sepsis without septic shock; F41.9 Anxiety disorder, unspecified; F32.9 Major depressive disorder, single episode, unspecified; G62.9 Polyneuropathy, unspecified; R26.9 Unspecified abnormalities of gait and mobility; R25.1 Tremor, unspecified; I10 Essential (primary) hypertension; E78.00 Pure hypercholesterolemia, unspecified; F03.90 Unspecified dementia, unspecified severity, without behavioral disturbance, psychotic disturbance, mood disturbance, and anxiety; Z66 Do not resuscitate; E78.5 Hyperlipidemia, unspecified; E86.0 Dehydration; Z87.01 Personal history of pneumonia (recurrent); Z96.641 Presence of right artificial hip joint; Z90.710 Acquired absence of both cervix and uterus; Z87.440 Personal history of urinary (tract) infections; Z87.891 Personal history of nicotine dependence; Z86.73 Personal history of transient ischemic attack (TIA), and cerebral infarction without residual deficits
CPT/HCPCS: 36415; 36569; 36600; 71010; 74000; 74176; 80048; 80053; 80069; 81001; 82272; 82330; 82805; 82962; 83605; 83735; 83880; 84100; 84132; 84134; 84145; 84478; 85014; 85018; 85025; 85610; 85730; 86850; 86900; 86901; 87040; 87045; 87046; 87046-59; 87086; 87493; 87493-59; 87899; 87899-59; 89055; 93970; 94640; 97110-GO; 97110-GP; 97163-GP; 97167-GO; 97530-GP; 99291; A9270-GY; C1751; C9113; G8978-CN-GP; G8979-CM-GP; G8987-CM-GO; G8988-CL-GO; J0692; J1170; J1940; J2185; J2405; J2543; J2550; P9047

== ENCOUNTER 2016-07-03 00:12 | Inpatient (IN) | payer OTHER ==
--- NOTE | ~2016-07-03 | DS ---
Discharge Summary [facility] [address] [facility] [place]. [address] NAME: CONSTANCE GILL : 30 STATUS : DIS IN PAT#: [id number] AGE: 86 ADM/REG DATE : 07/03/16 MR#: [id number] REPORT SERV DATE: 07/14/16 DICTATED BY: YOSSI BARON DATE: 07/13/16 REPORT STATUS : Draft TRANSCRIBED BY: MODL DATE: 07/13/16 Data Collection from hospitalization DISCHARGE DIAGNOSIS(ES): 1. Chronic obstructive pulmonary disease. 2. Respiratory failure. 3. Encephalopathy. CONSULTATIONS: None. PROCEDURES PERFORMED: None. DISPOSITION: [facility]. HOSPITAL COURSE: This 86-year-old female was admitted to [facility] secondary to hypoxia, respiratory failure, encephalopathy, and C. difficile diarrhea. She had originally been a resident of [facility] where she was for gait disturbance, chronic vertigo, and falling. Over the course of the last 6 weeks, she developed respiratory infection which turned out to be aspiration pneumonia. She was given antibiotics and then, developed C. difficile diarrhea and was admitted to the hospital. While course in the hospital, continued to defervesce to the point where she had not been able to eat or drink. She had been on TPN for the last few weeks. Her mental status had been only marginal, unable to perform any ADLs, losing weight, unable to drink, and then developing profuse C. difficile diarrhea. Over the course of the hospitalization, her mental status had never improved. Her ability to eat or drink had never improved. Her family made a conscious decision to stop TPN and consulted us for comfort measures and end of life care. She was admitted to the hospice unit for this and further treatment. Upon admission to the hospice unit for comfort measures, she was made a DNR and was also made n.p.o. with aspiration precautions. Following the day of admission, she did appear to be comfortable and comfort measures were continued. She appeared to be in no distress. On July 05, 2016, she continued with a decreased mental status and was not eating or drinking and was continued on comfort measures. She continued to deteriorate and on July 06, 2016, at 1410, she was noted to have absent breath sounds, no palpable pause, no peripheral reflex, and had been pronounced. She was then released to the above home. Information collected by: Melody Schroeder. I submit the above information as my discharge summary. REZA/LINO Yossi Baron MD / [id number] CC: Yossi Baron MD
--- NOTE | ~2016-07-03 | HP ---
History And Physical [place] [id number] [place]. [address] NAME: CONSTANCE GILL : 30 STATUS : ADM IN [facility]#: [id number] AGE: 86 ADM/REG DATE : 07/03/16 MR#: [id number] REPORT SERV DATE: 07/03/16 DICTATED BY: ISAK BARON DATE: 07/03/16 REPORT STATUS : Draft TRANSCRIBED BY: MODL DATE: 07/03/16 DATE OF ADMISSION: 07/03/2016 CHIEF COMPLAINT: Respiratory failure. HISTORY OF PRESENT ILLNESS: This is an 86-year-old white female, admitted to the [facility] secondary to hypoxia, respiratory failure, encephalopathy, and C difficile diarrhea. She has originally been a resident at [facility] where she was for gait disturbance, chronic vertigo, and falling. Over the course of last six weeks, developed respiratory infection which turned out to be aspiration pneumonia. She was given antibiotics and then developed C difficile diarrhea and was admitted to the hospital, and while course in the hospital, has continued to defervesce to the point where she has not been able to eat or drink. She has been on TPN for the last few weeks. Mental status has been only marginal, unable to perform any ADLs, losing weight, unable to drink, and then developing a profuse C difficile diarrhea. Over the course of the hospitalization, her mental status has never improved. Her ability to eat or drink has never improved. Family has made a conscious decision to stop TPN and consulted us for comfort measures and end-of- life care. PAST MEDICAL HISTORY: Significant for severe COPD and hypertension. PAST SURGICAL HISTORY: Unknown. FAMILY HISTORY: Noncontributory. REVIEW OF SYSTEMS: Unable to obtain secondary to the patient condition. PHYSICAL EXAMINATION: VITAL SIGNS: Noted in chart. GENERAL: She is an ill-appearing white female, in no acute distress today. HEENT: Normocephalic, atraumatic. Pupils are equal, round, and reactive to light and accommodation. NECK: Supple. No JVD noted. No lymphadenopathy. CARDIOVASCULAR: Mild tachycardia with a 2/6 systolic murmur. PULMONARY: Bilateral breath sounds. No wheezing, no rales. ABDOMEN: Soft, nontender, and nondistended. Hyperactive bowel sounds. EXTREMITIES: Trace edema. No clubbing or cyanosis. NEUROLOGIC: She is arousable, moans non-comprehensible words. Able to move all four extremities, but not against gravity. LABORATORIES AND X-RAYS: Reviewed. ASSESSMENT: 1. Chronic obstructive pulmonary disease, end-stage with hypoxia. 2. Clostridium difficile diarrhea. 3. Electrolyte disturbance. History And Physical [address] [place]. [address] NAME: CONSTANCE GILL : 30 STATUS : ADM IN [facility]#: [id number] AGE: 86 ADM/REG DATE : 07/03/16 MR#: [id number] REPORT SERV DATE: 07/03/16 DICTATED BY: ISAK BARON DATE: 07/03/16 REPORT STATUS : Draft TRANSCRIBED BY: LINO DATE: 07/03/16 4. Volume depletion. 5. Metabolic encephalopathy. 6. History of hypertension. PLAN: 30 minute long discussion with the family about end-of-life care. Family understands that care would provide gentle IV fluids at KVO. We will continue IV Flagyl for comfort more than anything else, although I have expressed that I do not think that continuing of IV Flagyl will prevent or treat this C difficile very effectively. Oxygen 2 to 5 L by nasal cannula. We will discontinue her Vapotherm just for comfort. We will do routine pain medications, routine anxiolytic, and routine nausea medications. We will place a scopolamine patch for secretion control. We will consider adding tube. I have encouraged the family to take shifts and breaks as she will probably of an electrolyte disturbance which may take three to five days as long as seven. She is actively ill. She is unable to handle her own secretions. We will try to make her as comfortable as possible in the last few days. MIGUEL/MODL Isak Baron MD / [id number] CC: Isak Baron MD UNKNOWN
[~2016-07-03 00:12] MED LIST changes: +CALTRAT600 PO; +CRANBERRY405 MG PO; +FLONASE NAS; +HYDROCHLOROT25 MG PO; +I40 PO; +IMOD PO; +KDUR20 PO; +MACROBID PO; +MIRALAX POWDER1 PKT PO; +NORV25 PO; +VENTOLIN HFA INH
== END 2016-07-06 16:55 | disposition expired | DRG 189 ==
LOC: 6NO 00:12
DX: J96.01 Acute respiratory failure with hypoxia (principal); J69.0 Pneumonitis due to inhalation of food and vomit; G93.41 Metabolic encephalopathy; E87.0 Hyperosmolality and hypernatremia; A04.7 Enterocolitis due to Clostridium difficile; E46 Unspecified protein-calorie malnutrition; B37.0 Candidal stomatitis; K92.1 Melena; J44.9 Chronic obstructive pulmonary disease, unspecified; G62.9 Polyneuropathy, unspecified; I10 Essential (primary) hypertension; Z66 Do not resuscitate; Z51.5 Encounter for palliative care; F32.9 Major depressive disorder, single episode, unspecified; R26.9 Unspecified abnormalities of gait and mobility; R25.1 Tremor, unspecified; F03.90 Unspecified dementia, unspecified severity, without behavioral disturbance, psychotic disturbance, mood disturbance, and anxiety; E86.0 Dehydration; Z87.01 Personal history of pneumonia (recurrent); Z96.641 Presence of right artificial hip joint; Z90.710 Acquired absence of both cervix and uterus; Z87.440 Personal history of urinary (tract) infections; Z87.891 Personal history of nicotine dependence; Z86.73 Personal history of transient ischemic attack (TIA), and cerebral infarction without residual deficits; Z68.23 Body mass index [BMI] 23.0-23.9, adult
CPT/HCPCS: A9270-GY; J1170; J3360